=== PATIENT | female | born 1960 | race Caucasian/White ===

== ENCOUNTER → 2016-11-03 | Outpatient (CLI) | payer BC ==
--- NOTE | 2016-11-04 15:29 | US ---
EXAMINATION TYPE: US thyroid st tissue head/neck DATE OF EXAM: 11/03/2016 4:03 PM COMPARISON: NONE CLINICAL HISTORY: E04.1 Left Thyroid Nodule. follow up on known nodules GLAND SIZE: Right Lobe: 3.8 x 1.4 x 1.7 cm Overall Parenchyma: homogenous Left Lobe: 4.5 x 1.8 x 1.8 cm Overall Parenchyma: homogeneous Isthmus Thickness: 0.3 cm NODULES RIGHT: # of nodules measured on right: 0 LEFT: # of nodules measured on left: 4 1. 1.0 X 0.9 x 0.8 cm isoechoic solid nodule at the mid pole with well-defined margins This nodule is wider than tall and shows minimal intranodular vascularity. Prior size: 1.1 x 0.6 x 0.7 cm 2. 1.2 X 0.9 x 1.0 cm isoechoic solid nodule at the mid posterior pole. This nodule is wider than t all and shows minimal intranodular vascularity. Prior size: 0.9 x 0.5 x 0.7 cm 3. 0.4 X 0.3 x 0.3 cm hypoechoic cystic nodule at the lower pole with well-defined margins. This no dule is wider than tall and shows no intranodular vascularity. Prior size: 0.4 x 0.3 x 0.3 cm 4. 0.6 X 0.4 x 0.5 cm isoechoic mixed nodule at the lower anterior pole with well-defined margins. This nodule is wider than tall and shows no intranodular vascularity. Prior size: no previous ISTHMUS: # of nodules measured in the isthmus: 0 Bilateral neck scanned, no evidence of lymphadenopathy. IMPRESSION: 1. Left lobe thyroid nodules. Two nodules are larger than 1 cm.
== END | disposition home or self-care (01) ==
LOC: RADUSWWP 15:31
PROVIDERS: ATTEND Otolaryngology
DX: E04.2 Nontoxic multinodular goiter (principal)
CPT/HCPCS: 76536

== ENCOUNTER → 2017-02-09 | Outpatient (CLI) | payer BC ==
--- NOTE | 2017-02-09 12:50 | MR ---
EXAMINATION TYPE: MR shoulder LT wo con DATE OF EXAM: 02/09/2017 COMPARISON: NONE HISTORY: Lt shoulder pain TECHNIQUE: Multiplanar, multisequence imaging of the left shoulder is performed without contrast. FINDINGS: Rotator Cuff: There is bursal fraying of the supraspinatus tendon anterior fibers distally with intra substance signal within the tendon and thickening compatible with chronic tendinosis and partial intr asubstance tear. Infraspinatus tendon intact. Subscapularis tendon has a normal appearance. Acromioclavicular Joint: There is narrowing and hypertrophic change of the AC joint. This does result in mild mass effect upon the supraspinatus tendon and muscle. Glenohumeral Joint: No sizable joint effusion. Glenohumeral ligaments appear to be intact. Labrum: The labrum appears grossly intact given limitation of non-arthrogram study. Biceps Tendon: The long head of biceps is in normal location within bicipital groove. Bone marrow signal: No focal abnormal marrow signal is appreciated. IMPRESSION: 1. Findings are suggestive of bursal fraying anterior fibers supraspinatus tendon which also demonstr ates more proximal thickening and increased intrasubstance signal compatible with tendinosis and part ial through thickness tear involving the anterior fibers with no retraction. Impingement secondary to arthropathy of the AC joint.
== END ==
LOC: RADMRIMAIN 11:30
PROVIDERS: ATTEND Orthopaedic Surgery
DX: M25.512 Pain in left shoulder (principal)

== ENCOUNTER → 2017-05-17 | Outpatient (CLI) | payer BC ==
--- NOTE | 2017-05-17 10:09 | US ---
EXAMINATION TYPE: US thyroid st tissue head/neck DATE OF EXAM: 05/17/2017 COMPARISON: US November 03, [address] neck November 19, 2015 CLINICAL HISTORY: E04.1 Thryoid nodule. Pt states F/U on nodules GLAND SIZE: Right Lobe: 4.3 x 1.5 x 1.4 cm Overall Parenchyma: heterogenous Left Lobe: 4.7 x 1.7 x 1.5 cm Overall Parenchyma: heterogeneous Isthmus Thickness: 0.3 cm NODULES RIGHT: # of nodules measured on right: 0 LEFT: # of nodules measured on left: 3 1. 0.2 X 0.6 x 0.7 cm isoechoic solid nodule at the mid pole with well-defined margins; This nodul e is wider than tall and shows intranodular vascularity. Prior size: 1.0 x 0.9 x 0.8 cm 2. 1.5 X 1.3 x 1.3 cm isoechoic solid nodule at the mid pole with poorly defined margins; This nodu le is wider than tall and shows intranodular vascularity. Prior size: 1.2 x 0.9 x 1.0 cm 3. 0.5 X 0.4 x 0.3 cm hypoechoic mixed nodule at the lower pole with well-defined margins;This nodul e is wider than tall and shows intranodular vascularity. Prior size: 0.4 x 0.3 x 0.3 cm ISTHMUS: # of nodules measured in the isthmus: 0 Bilateral neck scanned, no evidence of lymphadenopathy. Slightly enlarged nodule on left, otherwise o ther nodules appear stable. Normal size heterogeneous thyroid gland is redemonstrated with some nodules left thyroid marked by te chnologist, largest solid nodule is poorly defined and has been biopsied posteriorly. IMPRESSION: Overall stable findings, heterogeneous normal-sized thyroid is stable left-sided nodules, no new grea ter than 1 cm solid or cystic nodules are seen.
== END | disposition home or self-care (01) ==
LOC: RADUSWWP 09:32
PROVIDERS: ATTEND Otolaryngology
DX: E04.2 Nontoxic multinodular goiter (principal)
CPT/HCPCS: 76536

== ENCOUNTER → 2018-06-25 | Outpatient (CLI) | payer BC ==
--- NOTE | 2018-06-25 11:55 | US ---
EXAMINATION TYPE: US thyroid st tissue head/neck DATE OF EXAM: 06/25/2018 COMPARISON: Prior thyroid ultrasound 05/17/2017 CLINICAL HISTORY: E04.1 THYROID NODULE. GLAND SIZE: Right Lobe: 4.2 x 1.5 x 1.6 Overall Parenchyma: heterogenous Left Lobe: 4.6 x 1.8 x 1.6 Overall Parenchyma: heterogeneous Isthmus Thickness: 0.3m NODULES RIGHT: # of nodules measured on right: 2 1. 0.5 x 0.2x0.3 cmnodule at the upper pole with well-defined margins; . This nodule is wider than tall and shows intranodular vascularity. Prior size: Not measured on prior 2. 0.5x 0.2 nodule at the lower pole with well-defined margins; . This nodule is wider than tall an d shows no intranodular vascularity. Prior size: Not measured on prior LEFT: # of nodules measured on left: 3 1. 0.7 x0.6 x 0.6 cm nodule at the mid pole with well-defined margins; . This nodule is wider than tall and shows intranodular vascularity. Prior size: 0.7 x0.6x0.6cm 2. 1.1 x1.0 x 1.7 cm nodule the mid pole with poorly defined margins; . This nodule is wider than ta ll and shows intranodular vascularity. Prior size: 1.5 x 1.3 x 1.3 cm 3. 0.5 x0.4x0.4cm mixed nodule at the lower pole with well-defined margins; . This nodule is wider t melissa tall and shows intranodular vascularity. Prior size: 0.5 x 0.4 x 0.3 cm ISTHMUS: # of nodules measured in the isthmus: 0 Bilateral neck scanned, no evidence of lymphadenopathy. Largest left-sided nodule does not have well-defined margins especially in the sagittal measurement w hich may be overestimated. IMPRESSION: Multiple thyroid nodules are essentially stable.
== END | disposition home or self-care (01) ==
LOC: RADUSWWP 10:09
PROVIDERS: ATTEND Otolaryngology
DX: E04.2 Nontoxic multinodular goiter (principal)
CPT/HCPCS: 76536

== ENCOUNTER → 2018-12-24 | Outpatient (CLI) | payer BC ==
--- NOTE | 2018-12-24 13:28 | US ---
EXAMINATION TYPE: US thyroid st tissue head/neck DATE OF EXAM: 12/24/2018 COMPARISON: 06/25/2018 CLINICAL HISTORY: 58-year-old female E04.1 thyroid nodule. TECHNIQUE: Multiple sonographic images of the thyroid gland are obtained. FINDINGS: GLAND SIZE: Right Lobe: 4.0 x 2.1 x 1.3 cm Overall Parenchyma: heterogenous Left Lobe: 4.8 x 1.8 x 1.7 cm Overall Parenchyma: heterogeneous Isthmus Thickness: 0.3 cm NODULES RIGHT: # of nodules measured on right: 3 1. 5 x 4 x 2 mm hypoechoic mixed nodule at the upper pole with well-defined margins. This nodule is wider than tall and shows no intranodular vascularity. Prior size: 4 x 4 by 2 mm 2. 0.8 X 0.5 x 0.2 cm hypoechoic solid nodule at the medial pole with well-defined margins. This no dule is wider than tall and shows no intranodular vascularity. Prior size: 0.5 x 0.4 x 0.2 cm 3. 0.3 X 0.3 x 0.2 cm hypoechoic cystic nodule at the upper pole with well-defined margins. This no dule is wider than tall and shows no intranodular vascularity. LEFT: # of nodules measured on left: 3 largest 1. 0.5 X 0.4 x 0.4 cm hypoechoic mixed nodule at the lower pole with well-defined margins. This no dule is wide as is tall and shows no intranodular vascularity. Prior size: 0.5 x 0.4 x 0.4 cm 2. 1.1 X 0.6 x 0.7 cm isoechoic mixed nodule at the mid pole with poorly defined margins. This nodu le is taller than wide and shows no intranodular vascularity. Prior size: 0.7 x 0.6 x 0.6 cm 3. 0.3 X 0.3 x 0.2 cm hypoechoic cystic nodule at the mid inferior pole with well-defined margins. This nodule is wider than tall and shows no intranodular vascularity. Prior size: not seen ISTHMUS: # of nodules measured in the isthmus: 0 Bilateral neck scanned: no evidence of lymphadenopathy. IMPRESSION: 1. Redemonstrated multinodular thyroid gland, possible goiter. 2. The largest nodule is primarily solid in the left midpole measuring 1.1 x 0.7 cm versus 0.7 x 0.6 cm, previously. Additional follow-up is recommended. The decision to biopsy should be made on a clini anne basis. 3. The remaining nodules remain subcentimeter.
== END | disposition home or self-care (01) ==
LOC: RADUSWWP 08:44
PROVIDERS: ATTEND Otolaryngology
DX: E04.2 Nontoxic multinodular goiter (principal)
CPT/HCPCS: 76536

== ENCOUNTER 2019-05-11 10:45 | Emergency (ER) | payer BC ==
[2019-05-11 10:54] VITALS: RESP 19
[2019-05-11] MEDS ORDERED: DIPH,PERTUS(ACELL)TETVAC-LF 0.5 ML VIAL IM ONE (12:06)
[2019-05-11] MEDS ORDERED: LIDOCAINE 1% INJ 10MG/ML (20 ML MDV) SQ ONE (12:06)
--- NOTE | 2019-05-11 12:28 | CT ---
EXAMINATION TYPE: CT brain naldo zamora DATE OF EXAM: 05/11/2019 COMPARISON: Fall HISTORY: Fall, struck back of head, neck pain TECHNIQUE: 1. Axial CT images of the head without contrast. Bone windows and sagittal and coronal reformats were reviewed. 2. Axial CT images of the cervical spine without contrast. Bone windows and sagittal and coronal refo rmats were reviewed. 3. CT DLP: 1776.7 mGycm Automated exposure control for dose reduction was used. FINDINGS: CT Head: No acute intracranial hemorrhage. Ashton-white differentiation is preserved. Circumscribed hypoattenuat ion within the inferior right basal ganglia is in a typical location of a prominent perivascular spac e. The ventricular system is normal in size and morphology. No abnormal extra-axial fluid collections or midline shift of structures. Patent basal cisterns. No depressed or displaced calvarial fracture. Visualized paranasal sinuses and temporal bone structur es are well aerated. The orbits and skull base are unremarkable. CT Cervical Spine: The cervical spine is imaged through T3. Straightening of the usual cervical lordosis. Grade 1 noe listhesis of T1 over T2 is likely on a degenerative basis. Anatomic alignment of the facets. No fract ure. Vertebral body heights are maintained. Incidental C7 vertebral body hemangioma. Mild multilevel degenerative changes greatest in degree at C5-C6 characterized by osteophyte formatio n and mild disc height loss. No significant osseous impingement upon the spinal canal or neural fernando en. Mild contusion within the subcutaneous tissues of the upper back. Mildly enlarged left thyroid lobe. Lung apices are clear. IMPRESSION: 1. No acute intracranial abnormality. 2. No acute traumatic injury of the cervical spine. 3. Contusion within the subcutaneous tissues of the upper back.
--- NOTE | 2019-05-11 13:18 | XR ---
EXAMINATION TYPE: XR shoulder complete LT DATE OF EXAM: 05/11/2019 CLINICAL HISTORY: Fall TECHNIQUE: Three views of the left shoulder are obtained. COMPARISON: None. FINDINGS: No fracture. Glenohumeral and acromioclavicular joints are congruent. Mild degenerative mike nges at the acromioclavicular joint. IMPRESSION: No acute fracture or dislocation.
--- NOTE | 2019-05-11 13:21 | XR ---
EXAMINATION TYPE: XR hand complete RT DATE OF EXAM: 05/11/2019 CLINICAL HISTORY: Fall TECHNIQUE: Frontal, lateral and oblique images of the right hand are obtained. COMPARISON: None. FINDINGS/IMPRESSION: No acute fracture or joint malalignment. No osseous destructive lesion. Degenera tive changes throughout the hand greatest degree at the first interphalangeal joint, moderate. Soft t issue swelling and possible gas foci along the dorsum of the wrist.
--- NOTE | 2019-05-11 13:28 | ED ---
General Adult HPI - General Chief complaint: Fall Stated complaint: Fall Time Seen by Provider: 05/11/19 11:13 Source: patient, RN notes reviewed Mode of arrival: ambulatory Limitations: no limitations - History of Present Illness Initial comments: 58-year-old female presents to the emergency department for a chief complaint of fall.Patient had a trip and fall earlier today. Patient was walking down a flight of stairs. There was a decorative window on the sinus series she fell into this and fell backwards. Patient fell about 3-4 feet. Patient did hit her head. Denies any back pain. Admits to mild neck pain. Denies shortness of breath or chest pain. Denies any abdominal pain. Patient does admit to right hand pain and laceration. Patient also has left shoulder pain but states this is chronic. Patient has no other complaints at this time including shortness of breath, chest pain, abdominal pain, nausea or vomiting, headache, or visual changes. - Related Data Home Medications Medication Instructions Recorded Confirmed Cholecalciferol [Vitamin D3] 1,000 unit PO DAILY 11/13/15 11/20/15 Cyanocobalamin (Vitamin B-12) 2,000 mcg PO WEEKLY 11/13/15 11/20/15 [Vitamin B-12] DULoxetine HCL [Cymbalta] 30 mg PO DAILY 11/13/15 11/20/15 Montelukast [Singulair] 10 mg PO DAILY 11/13/15 11/20/15 Multivitamin/Iron/Folic Acid 1 each PO DAILY 11/13/15 11/20/15 [Centrum Complete Multivit Tab] Naproxen Sodium [Aleve] 220 mg PO Q12HR 11/13/15 11/20/15 Allergies Allergy/AdvReac Type Severity Reaction Status Date / Time codeine Allergy Vomiting Verified 11/20/15 12:27 sulfamethoxazole Allergy Rash/Hives Verified 11/20/15 12:27 [From Bactrim] trimethoprim [From Bactrim] Allergy Rash/Hives Verified 11/20/15 12:27 Review of Systems ROS Statement: Those systems with pertinent positive or pertinent negative responses have been documented in the HPI. ROS Other: All systems not noted in ROS Statement are negative. Past Medical History Past Medical History: Asthma, Thyroid Disorder History of Any Multi-Drug Resistant Organisms: None Reported Past Surgical History: Tonsillectomy Additional Past Surgical History / Comment(s): gastric sleeve Past Anesthesia/Blood Transfusion Reactions: No Reported Reaction Past Psychological History: Depression Smoking Status: Never smoker Past Alcohol Use History: None Reported Past Drug Use History: None Reported - Past Family History Mother Additional Family Medical History / Comment(s): uterine cancer General Exam - General Exam Comments Initial Comments: Patient has mild ecchymosis noted to the dorsum of the right hand however no significant tenderness. She does have small abrasion with shallow laceration noted to the dorsum of the right wrist. There is no scaphoid tenderness. Patient has full range motion of the left shoulder, radial pulse 2+, capillary refill less than 2 seconds. Sensation intact in the left upper extremity. No contusions noted. No significant tenderness. Limitations: no limitations General appearance: alert, in no apparent distress Head exam: Present: atraumatic, normocephalic, normal inspection Eye exam: Present: normal appearance, PERRL, EOMI. Absent: scleral icterus, conjunctival injection, periorbital swelling ENT exam: Present: normal exam, mucous membranes moist Neck exam: Present: normal inspection, full ROM. Absent: tenderness (Minimal tenderness to the C7 area), meningismus, lymphadenopathy Respiratory exam: Present: normal lung sounds bilaterally. Absent: respiratory distress, wheezes, rales, rhonchi, stridor Cardiovascular Exam: Present: regular rate, normal rhythm, normal heart sounds. Absent: systolic murmur, diastolic murmur, rubs, gallop, clicks GI/Abdominal exam: Present: soft, normal bowel sounds. Absent: distended, tenderness, guarding, rebound, rigid Back exam: Present: other (No contusions or abrasions noted). Absent: CVA tenderness (R), CVA tenderness (L), vertebral tenderness (No thoracic or lumbar spine tenderness) Neurological exam: Present: alert, oriented X3, CN II-XII intact Course Vital Signs 05/11/19 10:50 Temperature 98.8 F Pulse Rate 80 Respiratory 19 Rate Blood Pressure 194/85 O2 Sat by Pulse 98 Oximetry Procedures - Laceration Laceration #1 Consent Obtained: verbal consent Indication: laceration Site: hand Size (cm): 2 Description: linear Depth: simple, single layer Pre-repair: irrigated extensively Type of Sutures: other (steri strips) Medical Decision Making - Medical Decision Making Physical exam remarkable for some mild C7 tenderness as well as superficial laceration to the right wrist and contusion to the right hand. CT cervical spine shows no acute intracranial abnormality, no acute traumatic injury of the cervical spine. Contusion within the subcutaneous tissues of the upper back. X-ray of the left shoulder shows no acute fracture or dislocation. X-ray of the right hand shows no acute fracture or malalignment. Small shallow laceration over the right wrist was repaired using Steri-Strips as patient did not want sutures. It is up-to-date. Disposition Clinical Impression: Laceration, Fall Disposition: HOME SELF-CARE Condition: Good Instructions (If sedation given, give patient instructions): Steristrips (ED), Head Injury (ED) Additional Instructions: Please take Tylenol for pain. Please follow-up with primary care in 1-2 days. Return to the emergency department if you have any worsening symptoms. Is patient prescribed a controlled substance at d/c from ED?: No Referrals: Jarvis Wagner DO [Primary Care Provider] - 1-2 days Time of Disposition: 14:14
[2019-05-11] MEDS ORDERED: HYDROcodone/APAP 5-325MG 1 EACH TAB PO STA (14:34)
[2019-05-11] MEDS ORDERED: amLODIPine 5 MG TAB PO STA (14:34)
[2019-05-11 14:59] VITALS: BP 183/106; PULSE 67; TEMP 98.3
== END 2019-05-11 14:38 | disposition home or self-care (01) ==
LOC: EC 10:45
DX: S61.511A Laceration without foreign body of right wrist, initial encounter (principal); S60.221A Contusion of right hand, initial encounter; S20.229A Contusion of unspecified back wall of thorax, initial encounter; F32.9 Major depressive disorder, single episode, unspecified; Z79.899 Other long term (current) drug therapy; Z23 Encounter for immunization; Z88.5 Allergy status to narcotic agent; Z88.2 Allergy status to sulfonamides; Z88.1 Allergy status to other antibiotic agents; W01.0XXA Fall on same level from slipping, tripping and stumbling without subsequent striking against object, initial encounter; W10.8XXA Fall (on) (from) other stairs and steps, initial encounter; Y93.01 Activity, walking, marching and hiking
CPT/HCPCS: 73030; 73130; 72125; 70450; 90715; 99284; 90471; 12001; J2001

== ENCOUNTER → 2019-07-22 | Outpatient (CLI) | payer BC ==
--- NOTE | 2019-07-22 10:33 | US ---
EXAMINATION TYPE: US thyroid st tissue head/neck DATE OF EXAM: 07/22/2019 COMPARISON: 12/24/2018 CLINICAL HISTORY: E04.1 Thyroid Nodule. Thyroid nodules. GLAND SIZE: Right Lobe: 4.4 x 1.3 x 1.6 cm Overall Parenchyma: heterogenous Left Lobe: 4.4 x 1.7 x 1.7 cm Overall Parenchyma: heterogeneous Isthmus Thickness: .4 cm NODULES RIGHT: # of nodules measured on right: 2 1. .5 X .6 x .7 cm isoechoic echogenic nodule at the mid pole with poorly defined margins; . This nodule is wider than tall and shows intranodular vascularity. Prior size: .8 x .5 x .2 cm 2. .7 X .6 x .3 cm hypoechoic solid nodule at the upper pole with well-defined margins; . This nodu le is wider than tall and shows no intranodular vascularity. Prior size: .5 x .4 x .2 cm LEFT: # of nodules measured on left: 2 1. 1.0 X .5 x .7 cm isoechoic mixed nodule at the mid pole with poorly defined margins; . This nod ule is wider than tall and shows no intranodular vascularity. Prior size: 1.1 x .6 x .7 cm 2. .4 X .4 x .5 cm hypoechoic mixed nodule at the lower pole with well-defined margins; . This nodu le is wider than tall and shows no intranodular vascularity. Prior size: .5 x .4 x .4 cm ISTHMUS: # of nodules measured in the isthmus: 0 Bilateral neck scanned, no evidence of lymphadenopathy. Only 2 nodules seen on todays scan compared to 3 on the previous. IMPRESSION: Similar size of the bilateral thyroid nodules with the largest measuring 1.0 cm on the le ft.
== END | disposition home or self-care (01) ==
LOC: RADUSWWP 08:53
PROVIDERS: ATTEND Otolaryngology
DX: E04.2 Nontoxic multinodular goiter (principal)
CPT/HCPCS: 76536

== ENCOUNTER → 2020-08-20 | Outpatient (CLI) | payer BC ==
--- NOTE | 2020-08-20 12:05 | US ---
EXAMINATION TYPE: US thyroid st tissue head/neck DATE OF EXAM: 08/20/2020 COMPARISON: Thyroid ultrasound July 22, 2019 CLINICAL HISTORY: E04.1 THYROID NODULE. thy nodule GLAND SIZE: Right Lobe: 4.2 x 1.6 x 1.8 cm Overall Parenchyma: homogenous Left Lobe: 5.5 x 1.8 x 1.6 cm Overall Parenchyma: homogeneous Isthmus Thickness: cm NODULES RIGHT: # of nodules measured on right: 2 1. .6 X .4 x .4 cm solid or almost completely solid, hyperechoic nodule, which is wider than tall, with ill-defined margins, without echogenic foci. Prior size: .5 x .6 x .7 cm 2. .6 X .6 x .3 cm mixed cystic and solid, hypoechoic nodule, which is wider than tall, with smooth margins, without echogenic foci. Prior size: .7 x .6 x .3 cm LEFT: # of nodules measured on left: 2 1. 1.1 X .6 x .7 cm solid or almost completely solid, hypoechoic nodule, which is wider than tall, with ill-defined margins, without echogenic foci. Prior size: 1.1 x .6 x .7 cm 2. .5 X .6 x .4 cm solid or almost completely solid, hypoechoic nodule, which is wider than tall, w ith smooth margins, without echogenic foci. Prior size: .5 x .4 x .4 cm ISTHMUS: # of nodules measured in the isthmus: 0 Bilateral neck scanned, no evidence of lymphadenopathy. Redemonstration of fairly homogeneous normal-sized thyroid with stable small nodules bilaterally as d etailed above. IMPRESSION: As above. No new or enlarging greater than 1 cm solid nodules present.
== END ==
LOC: RADUSWWP 09:53
PROVIDERS: ATTEND Otolaryngology
DX: E04.2 Nontoxic multinodular goiter (principal)
CPT/HCPCS: 76536

== ENCOUNTER → 2021-06-17 | Outpatient (CLI) | payer BC | END | disposition home or self-care (01) | LOC: LABWHC1 10:50 | PROVIDERS: ATTEND Family Medicine | DX: U07.1 COVID-19 (principal) | CPT/HCPCS: U0003; C9803; U0005 ==

== ENCOUNTER → 2022-12-09 | Outpatient (CLI) | payer BC ==
[2022-12-09 21:40] LABS: HCT 34.9 % (37.2-46.3); HGB 9.8 d/dL (12.0-15.0); MCH 21.7 pg (27.0-32.0); MCHC 28.1 d/dL (32.0-37.0); MCV 77.4 FL (80.0-97.0); NRBC Per 100 WBC 0 X 10*3/uL (0.00-0.01); Platelet Count 275 X 10*3/uL (140-440); RBC 4.51 X 10*6/uL (4.10-5.20); RDW 21.2 % (11.5-14.5); WBC 6.02 X 10*3/uL (4.50-10.00)
[2022-12-09 21:44] LABS: ALT 14 U/L (8-44); AST 21 U/L (13-35); Albumin 4.4 d/dL (3.8-4.9); Albumin/Globulin Ratio 2.32 Ratio (1.60-3.17); Alkaline Phosphatase 135 U/L (41-126); BUN/Creat Ratio 21.64 Ratio (12.00-20.00); Blood Urea Nitrogen 23.8 mg/dL (9.0-27.0); Calcium 9.9 mg/dL (8.7-10.3); Carbon Dioxide 26.2 mmol/L (21.6-31.8); Chloride 105 mmol/L (96-109); Chol/HDL Ratio 2.16 Ratio; Globulin 1.9 d/dL (1.6-3.3); Glucose 93 mg/dL (70-110); LDL Cholesterol,Calculated 89.4 mg/dL (0.0-131.0); Potassium 5.1 mmol/L (3.5-5.5); Sodium 143 mmol/L (135-145); T4, Free (Free Thyroxine) 1.02 ng/dL (0.80-1.80); Total Bilirubin 0.4 mg/dL (0.3-1.2); Total Protein 6.3 d/dL (6.2-8.2); VLDL Calculation 15.94 mg/dL (5.00-40.00)
== END | disposition home or self-care (01) ==
LOC: LABWHC1 10:34
PROVIDERS: ATTEND Nurse Practitioner Family
DX: Z00.00 Encounter for general adult medical examination without abnormal findings (principal); I10 Essential (primary) hypertension; E78.5 Hyperlipidemia, unspecified; F32.A Depression, unspecified; R42 Dizziness and giddiness
CPT/HCPCS: 36415; 80053; 80061; 82306; 83036; 84439; 84443; 85027

== ENCOUNTER → 2022-12-14 | Outpatient (CLI) | payer BC ==
--- NOTE | 2022-12-14 18:36 | US ---
EXAMINATION TYPE: US thyroid st tissue head/neck DATE OF EXAM: 12/14/2022 COMPARISON: Multiple thyroid ultrasounds with most recent 08/20/2020. CLINICAL INDICATION: Female, 62 years old with history of E04.1 NONTOXIC SINGLE THYROID NODULE; Follo w up nodules GLAND SIZE: Right Lobe: 4.4 x 1.6 x 1.5 cm Overall Parenchyma: heterogenous Left Lobe: 4.6 x 1.8 x 1.9 cm Overall Parenchyma: heterogenous Isthmus Thickness: 0.3 cm NODULES RIGHT: # of nodules measured on right: 1 1. 0.6 X 0.6 x 0.3 cm, upper medial, mixed cystic and solid, hypoechoic nodule, which is wider than tall, with smooth margins, without echogenic foci. Prior size: 0.6 x 0.6 x 0.3 cm LEFT: # of nodules measured on left: 2 1. 0.6 X 0.5 x 0.5 cm, lower lateral, mixed cystic and solid, hypoechoic nodule, which is wider sivan n tall, with smooth margins, without echogenic foci. Prior size: 0.5 x 0.6 x 0.4 cm 2. 1.1 X 0.8 x 0.8 cm, mid medial, mixed cystic and solid, isoechoic nodule, which is wider than t all, with smooth margins, without echogenic foci. Prior size: 1.1 x 0.6 x 0.7 cm ISTHMUS: # of nodules measured in the isthmus: 0 Bilateral neck scanned, no evidence of lymphadenopathy. Redemonstration of normal size thyroid gland with homogeneous echotexture and stable small bilateral nodules. IMPRESSION: Redemonstration of normal size thyroid gland with homogeneous echotexture and stable small bilateral nodules. No new or enlarging nodules.
== END | disposition home or self-care (01) ==
LOC: RADUSWWP 15:59
PROVIDERS: ATTEND Otolaryngology
DX: E04.2 Nontoxic multinodular goiter (principal)
CPT/HCPCS: 76536

== ENCOUNTER → 2022-12-23 | Outpatient (CLI) | payer BC ==
[2022-12-23 09:50] LABS: Creatine Kinase 43 U/L (30-135)
[2022-12-23 10:03] LABS: Troponin I <0.012 ng/mL (0.000-0.034)
[2022-12-23 12:11] LABS: Creatine Kinase MB 0.6 ng/mL (0.0-3.4)
[2022-12-23 16:40] LABS: % Iron Saturation 7.51 (12.00-45.00); Ferritin 10.1 ng/mL (10.0-291.0)
[2022-12-23 17:00] LABS: HCT 33.9 % (37.2-46.3); HGB 9.9 d/dL (12.0-15.0); MCH 22.2 pg (27.0-32.0); MCHC 29.2 d/dL (32.0-37.0); MCV 76.2 FL (80.0-97.0); NRBC Per 100 WBC 0 X 10*3/uL (0.00-0.01); Platelet Count 276 X 10*3/uL (140-440); RBC 4.45 X 10*6/uL (4.10-5.20); RDW 20.9 % (11.5-14.5); WBC 5.96 X 10*3/uL (4.50-10.00)
== END | disposition home or self-care (01) ==
LOC: LABWHC1 07:51
PROVIDERS: ATTEND Family Medicine
DX: D64.9 Anemia, unspecified (principal); R00.2 Palpitations; R07.89 Other chest pain
CPT/HCPCS: 36415; 82550; 82553; 82728; 83540; 83550; 84484; 85027

== ENCOUNTER 2025-01-05 15:47 | Inpatient (IN) | payer BC ==
[2025-01-05 16:25] LABS: Basophils # (A) 0.08 10*3/uL (0.00-0.10); Basophils % (A) 1.1 %; Eosinophils # (A) 0.12 10*3/uL (0.04-0.35); Eosinophils % (A) 1.6 %; HCT 42.4 % (37.2-46.3); HGB 13.8 g/dL (12.0-15.0); Lymphocytes # (A) 1.84 10*3/uL (0.90-5.00); Lymphocytes % (A) 25.1 %; MCH 28.8 pg (27.0-32.0); MCHC 32.5 g/dL (32.0-37.0); MCV 88.5 fL (80.0-97.0); Monocytes # (A) 0.62 10*3/uL (0.20-1.00); Monocytes % (A) 8.4 %; Neutrophils # (A) 4.65 10*3/uL (1.80-7.70); Neutrophils % (A) 63.4 %; Platelet Count 206 10*3/uL (140-440); RBC 4.79 10*6/uL (4.10-5.20); RDW 16.3 % (11.5-14.5); WBC 7.34 10*3/uL (4.50-10.00)
[2025-01-05 16:37] LABS: ALT 199 U/L (4-34); African American GFR (CKD) 76 (>60 ml/min/1.73 sqM); Albumin 4.2 g/dL (3.5-5.0); Anion Gap 14 mmol/L; Blood Urea Nitrogen 22 mg/dL (7-17); Calcium 9.9 mg/dL (8.4-10.2); Carbon Dioxide 17 mmol/L (22-30); Chloride 107 mmol/L (98-107); Glucose 111 mg/dL (74-99); Lipase 156 U/L (23-300); Non-African American GFR(CKD) 66 (>60 ml/min/1.73 sqM); Sodium 138 mmol/L (137-145); Total Protein 6.7 g/dL (6.3-8.2)
--- NOTE | 2025-01-05 16:38 | ED ---
General Adult HPI - General Chief complaint: Chest Pain Stated complaint: Back pain Time Seen by Provider: 01/05/25 15:49 Source: patient Mode of arrival: ambulatory Limitations: no limitations - History of Present Illness Initial comments: Dictation was produced using Gam[employer] dictation software. please excuse any grammatical, word or spelling errors. Chief Complaint: 64-year-old female presents to the emergency department for chest pain History of Present Illness: Patient 64-year-old female presents to the emergency department chest pain. Patient states that the pain is in her chest radiates to her back states that she has had this before though not as severe. She believes that she has a twisted rib. Denies any extremity issues. Patient does report history of hypertension she states is controlled. Denies any shortness of breath. Patient states that her pain is 9 out of 10. The ROS documented in this emergency department record has been reviewed and confirmed by me. Those systems with pertinent positive or negative responses have been documented in the HPI. All other systems are other negative and/or noncontributory. - Related Data Home Medications Medication Instructions Recorded Confirmed Cholecalciferol [Vitamin D3] 1,000 unit PO DAILY 11/13/15 11/20/15 Cyanocobalamin (Vitamin B-12) 2,000 mcg PO WEEKLY 11/13/15 11/20/15 [Vitamin B-12] DULoxetine HCL [Cymbalta] 30 mg PO DAILY 11/13/15 11/20/15 Montelukast [Singulair] 10 mg PO DAILY 11/13/15 11/20/15 Multivitamin/Iron/Folic Acid 1 each PO DAILY 11/13/15 11/20/15 [Centrum Complete Multivit Tab] Naproxen Sodium [Aleve] 220 mg PO Q12HR 11/13/15 11/20/15 Allergies Allergy/AdvReac Type Severity Reaction Status Date / Time codeine Allergy Vomiting Verified 01/05/25 15:52 sulfamethoxazole Allergy Rash/Hives Verified 01/05/25 15:52 [From Bactrim] trimethoprim [From Bactrim] Allergy Rash/Hives Verified 01/05/25 15:52 Review of Systems ROS Statement: Those systems with pertinent positive or pertinent negative responses have been documented in the HPI. ROS Other: All systems not noted in ROS Statement are negative. Past Medical History Past Medical History: Asthma, Thyroid Disorder History of Any Multi-Drug Resistant Organisms: None Reported Past Surgical History: Tonsillectomy Additional Past Surgical History / Comment(s): gastric sleeve Past Anesthesia/Blood Transfusion Reactions: No Reported Reaction Past Psychological History: Depression Smoking Status: Never smoker Past Alcohol Use History: None Reported Past Drug Use History: None Reported - Past Family History Mother Additional Family Medical History / Comment(s): uterine cancer General Exam - General Exam Comments Initial Comments: PHYSICAL EXAM: General Impression: Alert and oriented x3, not in acute distress HEENT: Normocephalic atraumatic, extra-ocular movements intact, pupils equal and reactive to light bilaterally, mucous membranes moist. 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 No NV prolongation, no QTC prolongation, no ST or T-wave changes noted. Overall, this EKG is unremarkable Medical Decision Making - Medical Decision Making Was pt. sent in by a medical professional or institution (, PA, SALES ROUTE DRIVER HELPER, urgent care, hospital, or retirement...) When possible be specific @ -No Did you speak to anyone other than the patient for history (EMS, parent, family, police, friend...)? What history was obtained from this source @ -No Did you review nursing and triage notes (agree or disagree)? Why? @ -I reviewed and agree with nursing and triage notes Were old charts reviewed (outside hosp., previous admission, EMS record, old EKG, old radiological studies, urgent care reports/EKG's, retirement records)? Report findings @ -No old charts were reviewed Differential Diagnosis (chest pain, altered mental status, abdominal pain women, abdominal pain men, vaginal bleeding, musculoskeletal, weakness, fever, dyspnea, syncope, headache, dizziness, GI bleed, back pain, seizure, CVA, palpatations, mental health)? @ -Differential Chest Pain: Stable Angina, Unstable Angina, STEMI, NSTEMI Aortic Dissection, Pneumothorax, Musculoskeletal, Esophageal Spasm GERD, Cholecystitis, Pancreatitis, Zoster, th is is not meant to be an all-inclusive list. EKG interpreted by me (3pts min.). @ -See above X-rays interpreted by me (1pt min.). @ -None done CT interpreted by me (1pt min.). @ -CT angiography shows no dissection of the aorta U/S interpreted by me (1pt. min.). @ -None done What testing was considered but not performed or refused? (CT, X-rays, U/S, labs)? Why? @ -None What meds were considered but not given or refused? Why? @ -None Was smoking cessation discussed for >3mins.? @ -No Were there social determinants of health that impacted care today? How? (Homelessness, low income, unemployed, alcoholism, drug addiction, transportation, low edu. Level, literacy, decrease access to med. care, [facility], rehab)? @ -No Was there de-escalation of care discussed even if they declined (Discuss DNR or withdrawal of care, Hospice)? DNR status @ -No What co-morbidities impacted this encounter? (DM, HTN, Smoking, COPD, CAD, Cancer, CVA, ARF, Chemo, Hep., AIDS, mental health diagnosis, sleep apnea, morbid obesity)? @ -None Was patient admitted / discharged? Hospital course, mention meds given and route, prescriptions, significant lab abnormalities, going to OR and other pertinent info. @ -64-year-old female with chest pain. Blood pressure on arrival was elevated 202/119. Rest of vitals unremarkable. EKG shows no signs of ischemia or infarction. Clinical presentation concerning for dissection. CT angiography is negative for dissection. Labs unremarkable troponin negative. Patient will be admitted for cardiac monitoring cardiology consultation for chest pain. Patient given aspirin. Case discussed with hospitalist for admission Did you discuss the management of the patient with other professionals (professionals i.e. , PA, SALES ROUTE DRIVER HELPER, lab, RT, psych nurse, social media assistant, size mixer, teacher, gunnery/ordnance officer, case management associate)? Give summary @ -See above Was critical care preformed (if so, how long)? @ -No Undiagnosed new problem with uncertain prognosis? @ -No Drug Therapy requiring intensive monitoring for toxicity (Heparin, Nitro, Insulin, Cardizem)? @ -No Were any procedures done? @ -No Diagnosis/symptom? Acute, or Chronic, or Acute on Chronic? Uncomplicated (without systemic symptoms) or Complicated (systemic symptoms)? @ -Chest pain Side effects of treatment? @ -No Exacerbation, Progression, or Severe Exacerbation? @ -No Poses a threat to life or bodily function? How? (Chest pain, [place], [place], pneumonia, PE, COPD, DKA, ARF, appy, cholecystitis, CVA, Diverticulitis, Homicidal, Suicidal, threat to staff... and all critical care pts) @ -yes - Lab Data Result diagrams: 01/05/25 16:18 01/05/25 16:18 Lab Results 01/05/25 01/05/25 01/05/25 Range/Units 16:18 16:18 16:18 WBC 7.34 (4.50-10.00) 10*3/uL RBC 4.79 (4.10-5.20) 10*6/uL Hgb 13.8 (12.0-15.0) g/dL Hct 42.4 (37.2-46.3) % MCV 88.5 (80.0-97.0) fL MCH 28.8 (27.0-32.0) pg MCHC 32.5 (32.0-37.0) g/dL Plt Count 206 (140-440) 10*3/uL MPV 12.4 H (9.5-12.2) fL Immature Gran % (Auto) 0.4 % Neutrophils % 63.4 % Lymphocytes % 25.1 % Monocytes % 8.4 % Eosinophils % 1.6 % Basophils % 1.1 % Immature Gran # 0.03 (0.00-0.04) 10*3/uL Neutrophils # 4.65 (1.80-7.70) 10*3/uL Lymphocytes # 1.84 (0.90-5.00) 10*3/uL Monocytes # 0.62 (0.20-1.00) 10*3/uL Eosinophils # 0.12 (0.04-0.35) 10*3/uL Basophils # 0.08 (0.00-0.10) 10*3/uL PT (10.0-12.5) sec INR (<1.2) APTT (22.0-30.0) sec Sodium 138 (137-145) mmol/L Potassium 4.2 (3.5-5.1) mmol/L Chloride 107 (98-107) mmol/L Carbon Dioxide 17 L (22-30) mmol/L Anion Gap 14 mmol/L BUN 22 H (7-17) mg/dL Creatinine 0.93 (0.52-1.04) mg/dL Est GFR (CKD-EPI)AfAm 76 (>60 ml/min/1.73 sqM) Est GFR (CKD-EPI)NonAf 66 (>60 ml/min/1.73 sqM) Glucose 111 H (74-99) mg/dL Plasma Lactic Acid Gumaro (0.7-2.0) mmol/L Calcium 9.9 (8.4-10.2) mg/dL Magnesium 1.8 (1.6-2.3) mg/dL Total Bilirubin 3.6 H (0.2-1.3) mg/dL AST 265 H (14-36) U/L ALT 199 H (4-34) U/L Alkaline Phosphatase 1313 H (38-126) U/L Troponin I <0.012 (0.000-0.034) ng/mL Total Protein 6.7 (6.3-8.2) g/dL Albumin 4.2 (3.5-5.0) g/dL Lipase 156 (23-300) U/L 01/05/25 01/05/25 Range/Units 16:34 16:34 WBC (4.50-10.00) 10*3/uL RBC (4.10-5.20) 10*6/uL Hgb (12.0-15.0) g/dL Hct (37.2-46.3) % MCV (80.0-97.0) fL MCH (27.0-32.0) pg MCHC (32.0-37.0) g/dL Plt Count (140-440) 10*3/uL MPV (9.5-12.2) fL Immature Gran % (Auto) % Neutrophils % % Lymphocytes % % Monocytes % % Eosinophils % % Basophils % % Immature Gran # (0.00-0.04) 10*3/uL Neutrophils # (1.80-7.70) 10*3/uL Lymphocytes # (0.90-5.00) 10*3/uL Monocytes # (0.20-1.00) 10*3/uL Eosinophils # (0.04-0.35) 10*3/uL Basophils # (0.00-0.10) 10*3/uL PT 10.2 (10.0-12.5) sec INR 0.9 (<1.2) APTT 21.6 L (22.0-30.0) sec Sodium (137-145) mmol/L Potassium (3.5-5.1) mmol/L Chloride (98-107) mmol/L Carbon Dioxide (22-30) mmol/L Anion Gap mmol/L BUN (7-17) mg/dL Creatinine (0.52-1.04) mg/dL Est GFR (CKD-EPI)AfAm (>60 ml/min/1.73 sqM) Est GFR (CKD-EPI)NonAf (>60 ml/min/1.73 sqM) Glucose (74-99) mg/dL Plasma Lactic Acid Gumaro 1.3 (0.7-2.0) mmol/L Calcium (8.4-10.2) mg/dL Magnesium (1.6-2.3) mg/dL Total Bilirubin (0.2-1.3) mg/dL AST (14-36) U/L ALT (4-34) U/L Alkaline Phosphatase (38-126) U/L Troponin I (0.000-0.034) ng/mL Total Protein (6.3-8.2) g/dL Albumin (3.5-5.0) g/dL Lipase (23-300) U/L Disposition Clinical Impression: Chest pain Disposition: ADMITTED IP TO THIS [facility] Condition: Fair Referrals: Jarvis Wagner DO [Primary Care Provider] - 1-2 days Decision Time: 18:04
[2025-01-05] MEDS: ONDANSETRON 4 MG/2 ML VIAL IVP STA (16:43)
[2025-01-05] MEDS: MORPHINE SULFATE 4 MG/ML SYRINGE IVP STA ×2 (16:44→18:37)
[2025-01-05 16:48] LABS: AST 265 U/L (14-36); Magnesium 1.8 mg/dL (1.6-2.3); Potassium 4.2 mmol/L (3.5-5.1)
[2025-01-05 16:49] LABS: Alkaline Phosphatase 1313 U/L (38-126)
[2025-01-05 17:15] LABS: INR 0.9 (<1.2); Partial Thromboplastin Time 21.6 sec (22.0-30.0); Prothrombin Time 10.2 sec (10.0-12.5)
--- NOTE | 2025-01-05 17:25 | CT ---
EXAMINATION TYPE: CT noncontrast chest abdomen pelvis. CT angio thor/abd DATE OF EXAM: 01/05/2025 5:16 PM COMPARISON: None. CLINICAL INDICATION: Female, 64 years old with history of suspect aortic dissection; PHH, back pain r adiating towards chest TECHNIQUE: Noncontrast CT chest followed by CT angiogram chest abdomen pelvis. A noncontrast CT chest Multiple a xial CT images of the chest, abdomen, and pelvis were obtained prior to and after the administration of IV contrast. 3-D reformats and maximum intensity projection format were performed on a separate wo rkstation. . Contrast used:100 ml mL of Isovue 370 without and with IV Contrast, CT DLP: 3286.8 mGycm, Automated exposure control for dose reduction was used. FINDINGS: ARTERIAL VASCULATURE: Ascending thoracic aorta and descending thoracic aorta are within normal limits for size. There is no evidence for intramural hematoma within the aorta on noncontrast imaging. Post contrast imaging demonstrates no evidence for dissection. The major vessels of the aortic arch are pa tent. The major vessels of the abdominal aorta are patent. PULMONARY ARTERIAL VASCULATURE: Normal caliber. No evidence of filling defect to suggest pulmonary em bolus. VENOUS SYSTEM: Unremarkable. LUNGS/ PLEURA: No focal consolidation, pneumothorax or pleural effusion. AIRWAY: Patent and unremarkable. HEART: Size within normal limits. MEDIASTINUM: No gross evidence of adenopathy. Calcified mediastinal and bilateral hilar lymph nodes, likely sequelae of previous granulomatous disease. MUSCULOSKELETAL: No acute osseous abnormalities SOFT TISSUES/LYMPH NODES: Unremarkable. LOWER NECK: No significant findings. Abdomen: LIVER: Unremarkable GALLBLADDER AND BILE DUCTS: Layering increased densities within the lumen consistent with gallstones are present. PANCREAS: Unremarkable. SPLEEN: Unremarkable. ADRENAL GLANDS: Unremarkable. KIDNEYS AND URETERS: No evidence of hydronephrosis or renal calculus. The ureters are unremarkable. Left renal cystic lesion without definite enhancement. PELVIS BLADDER: Unremarkable REPRODUCTIVE: Unremarkable. ABDOMEN & PELVIS STOMACH AND BOWEL: Previously sleeve gastrectomy. Scattered diverticula are noted throughout the colo n. No evidence of bowel obstruction. Small hiatal hernia. PERITONEUM/RETROPERITONEUM: No evidence of pneumoperitoneum or free fluid. MUSCULOSKELETAL: No acute osseous abnormalities LYMPH NODES: No gross evidence for lymphadenopathy. SOFT TISSUE/ABDOMINAL WALL: Unremarkable IMPRESSION: 1. No evidence for aortic dissection, aneurysm or occlusion. 2. No acute abnormality identified in the chest/abdomen/pelvis. 3. Nonacute findings as above. [facility], , 01/05/2025 5:23 PM
[2025-01-05] MEDS ORDERED: NITROGLYCERIN SL TABS 0.4 MG TAB SUBLINGUAL PRN (18:00)
[2025-01-05] MEDS: ASPIRIN 81 MG PO STA (18:15)
[2025-01-05] MEDS: hydrALAZINE HCL 20 MG/ML 1 ML VIAL IVP STA (21:15)
[2025-01-06 08:04] LABS: Cholesterol 264.00 mg/dL (0.00-200.00); HDL Cholesterol 102.00 mg/dL (40.00-60.00); LDL Cholesterol,Calculated 152.7 mg/dL (0.0-131.0); Triglycerides 46.40 mg/dL (0.00-149.00); VLDL Calculation 9.28 mg/dL (5.00-40.00)
--- NOTE | 2025-01-06 09:18 | P.CRDCN ---
History of Present Illness Consult date: 01/06/25 History of present illness: HISTORY OF PRESENTING ILLNESS: Known to Dr. Breaux Past medical history of gastric sleeve surgery in 2013, obesity 64-year-old presented to the hospital because of right upper quadrant pain, radiating to back along with symptoms of GERD and worsening of pain symptoms after eating food. Cardiology was consulted for chest pain evaluation. Over last 1 to 2 days she has been experiencing right upper quadrant pain which she attributes to her twisted rib which is radiating to her back. She also reports that her GERD symptoms are more worse especially after eating food lately. She also feels that the back pain does get worse slightly after eating food. On admission her tropes were negative however her AST and ALT were mildly elevated however she denies any history of smoking alcohol or drug use marijuana use. She has also had elevated ALP and elevated total bili. She reports that since 2021 she has lost multiple family members and she has been in emotional distress and has been eating more. She has gained back 70 pounds of weight. ................................................................................ .............................................................. Pertient Vitals: 174/76, heart rate 66 bpm Pertient Labs: Hb 13.8, BUN 22, creatinine 0.9, AST 265, ALT 199, ALP 1313, troponin negative, LDL 152 EKG: Sinus rhythm ................................................................................ .............................................................. REVIEW OF SYSTEMS: 14 point review of system is negative except what is mentioned above in HPI. ................................................ ................................................................................ .............. PHYSICAL EXAMINATION: Neck: Brisk carotid upstroke, no jugular venous distention. Lungs: Clear to auscultation. Heart: Regular rate and rhythm, S1-S2, , no murmur or rub. Abdomen: Soft , positive bowel sounds. Mild tenderness in the right upper quadrant noticed Extremities: No edema, intact distal pulses. Neuro: Alert, oritented, no focal deficits. Detailed neuro exam was not performed. ............. ................................................................................ ................................................. ASSESSMENT: # Atypical chest pain, ACS has been ruled out # Transaminitis with elevated ALP and bilirubin suggestive of obstructive hepatopathy # Morbid obesity # Essential hypertension # Dyslipidemia # Prior history of gastric sleeve surgery with resulting anemia from malabsorption syndrome. PLAN: Obtain echocardiogram, NT-proBNP, lipids and A1c levels and TSH level At home she is on Lipitor 10 mg. Will hold it for now because of transaminitis and resume it once it resolves because of elevated LDL Start losartan 25 mg daily for elevated blood pressure Recommend GI workup with possible MRCP or HIDA scan. Further recommendations to follow Ervin Ludwig MD, FACC, RPVI Past Medical History Past Medical History: Asthma, Blood Disorder, Hypertension, Thyroid Disorder Additional Past Medical History / Comment(s): anemia History of Any Multi-Drug Resistant Organisms: None Reported Past Surgical History: Bariatric Surgery, Tonsillectomy Additional Past Surgical History / Comment(s): gastric sleeve Past Anesthesia/Blood Transfusion Reactions: No Reported Reaction Past Psychological History: Depression Smoking Status: Former smoker Past Alcohol Use History: None Reported Additional Past Alcohol Use History / Comment(s): states smoked 1 year in college in the 1980s Past Drug Use History: None Reported - Past Family History Mother Additional Family Medical History / Comment(s): uterine cancer Medications and Allergies Home Medications Medication Instructions Recorded Confirmed Type Atorvastatin [Lipitor] 10 mg PO DAILY 01/05/25 01/05/25 History DULoxetine HCL [Cymbalta] 60 mg PO DAILY 01/05/25 01/05/25 History Multivitamin [Multivitamins Adult 1 tab PO DAILY 01/05/25 01/05/25 History Gummies] Olmesartan Medoxomil 40 mg PO DAILY 01/05/25 01/05/25 History Vitamin B-12 Gummy 1 tab PO DAILY 01/05/25 01/05/25 History Vitamin D3 Gummy 1 tab PO DAILY 01/05/25 01/05/25 History Allergies Allergy/AdvReac Type Severity Reaction Status Date / Time codeine Allergy Vomiting Verified 01/05/25 18:58 sulfamethoxazole Allergy Rash/Hives Verified 01/05/25 18:58 [From Bactrim] trimethoprim [From Bactrim] Allergy Rash/Hives Verified 01/05/25 18:58 Physical Exam Vitals: Vital Signs Temp Pulse Pulse Resp BP BP BP 01/06/25 07:10 98.7 F 85 16 168/75 01/06/25 00:22 98.7 F 66 16 135/71 01/05/25 22:59 68 18 174/76 01/05/25 22:10 79 18 185/81 07/20/25 21:09 71 18 197/88 01/05/25 18:11 58 L 16 212/92 01/05/25 17:13 60 19 183/88 01/05/25 16:27 58 L 01/05/25 15:52 97.5 F L 57 L 18 202/119 Pulse Ox 01/06/25 07:10 99 01/06/25 00:22 96 01/05/25 22:59 96 01/05/25 22:10 95 01/05/25 21:09 97 01/05/25 18:11 100 01/05/25 17:13 100 01/05/25 16:27 01/05/25 15:52 99 Intake and Output 01/05/25 01/06/25 01/06/25 22:59 06:59 14:59 Other: Voiding Method Toilet Weight 154.221 kg 154.221 kg Results 01/05/25 16:18 01/05/25 16:18 Cardiac Enzymes 01/05/25 01/05/25 01/05/25 Range/Units 16:18 16:18 19:37 AST 265 H (14-36) U/L Troponin I <0.012 <0.012 (0.000-0.034) ng/mL 01/05/25 Range/Units 22:53 AST (14-36) U/L Troponin I <0.012 (0.000-0.034) ng/mL Coagulation 01/05/25 Range/Units 16:34 PT 10.2 (10.0-12.5) sec APTT 21.6 L (22.0-30.0) sec Lipids 01/05/25 Range/Units 16:18 Triglycerides 46.40 (0.00-149.00) mg/dL Cholesterol 264.00 H (0.00-200.00) mg/dL HDL Cholesterol 102.00 H (40.00-60.00) mg/dL Cholesterol/HDL Ratio 2.59 Ratio CBC 01/05/25 Range/Units 16:18 WBC 7.34 (4.50-10.00) 10*3/uL RBC 4.79 (4.10-5.20) 10*6/uL Hgb 13.8 (12.0-15.0) g/dL Hct 42.4 (37.2-46.3) % Plt Count 206 (140-440) 10*3/uL Comprehensive Metabolic Panel 01/05/25 Range/Units 16:18 Sodium 138 (137-145) mmol/L Potassium 4.2 (3.5-5.1) mmol/L Chloride 107 (98-107) mmol/L Carbon Dioxide 17 L (22-30) mmol/L BUN 22 H (7-17) mg/dL Creatinine 0.93 (0.52-1.04) mg/dL Glucose 111 H (74-99) mg/dL Calcium 9.9 (8.4-10.2) mg/dL AST 265 H (14-36) U/L ALT 199 H (4-34) U/L Alkaline Phosphatase 1313 H (38-126) U/L Total Protein 6.7 (6.3-8.2) g/dL Albumin 4.2 (3.5-5.0) g/dL Current Medications Generic Name Dose Route Start Last Admin Trade Name Freq PRN Reason Stop Dose Admin Aspirin 325 mg 01/06/25 09:00 Aspirin 325 Mg Tab PO DAILY NITA Hydrocortisone 1 applic 01/06/25 09:03 Hydrocortisone 1% Cream 30 Gm Tube TOPICAL TID PRN Skin Irritation Protocol Nitroglycerin 0.4 mg 01/05/25 18:00 Nitroglycerin Sl Tabs 0.4 Mg Tab SUBLINGUAL Q5M PRN Chest Pain Intake and Output 01/05/25 01/06/25 01/06/25 22:59 06:59 14:59 Other: Voiding Method Toilet Weight 154.221 kg 154.221 kg 01/05/25 16:18 01/05/25 16:18
[2025-01-06 09:39] LABS: Basophils # (A) 0.03 10*3/uL (0.00-0.10); Basophils % (A) 0.4 %; Eosinophils # (A) 0.05 10*3/uL (0.04-0.35); Eosinophils % (A) 0.7 %; HCT 40.8 % (37.2-46.3); HGB 13.4 g/dL (12.0-15.0); Lymphocytes # (A) 0.94 10*3/uL (0.90-5.00); Lymphocytes % (A) 13.4 %; MCH 28.9 pg (27.0-32.0); MCHC 32.8 g/dL (32.0-37.0); MCV 88.1 fL (80.0-97.0); Monocytes # (A) 0.71 10*3/uL (0.20-1.00); Monocytes % (A) 10.2 %; Neutrophils # (A) 5.22 10*3/uL (1.80-7.70); Neutrophils % (A) 74.7 %; Platelet Count 217 10*3/uL (140-440); RBC 4.63 10*6/uL (4.10-5.20); RDW 16.8 % (11.5-14.5); WBC 6.99 10*3/uL (4.50-10.00)
[2025-01-06 10:17] LABS: ALT 239 U/L (4-34); AST 358 U/L (14-36); African American GFR (CKD) 84 (>60 ml/min/1.73 sqM); Albumin 3.6 g/dL (3.5-5.0); Albumin/Globulin Ratio 1.4; Anion Gap 8 mmol/L; Blood Urea Nitrogen 17 mg/dL (7-17); Calcium 9.6 mg/dL (8.4-10.2); Carbon Dioxide 29 mmol/L (22-30); Chloride 101 mmol/L (98-107); Globulin 2.5 g/dL; Glucose 107 mg/dL (74-99); Non-African American GFR(CKD) 73 (>60 ml/min/1.73 sqM); Potassium 4.3 mmol/L (3.5-5.1); Sodium 138 mmol/L (137-145); Total Protein 6.1 g/dL (6.3-8.2)
[2025-01-06 10:25] LABS: Alkaline Phosphatase 1257 U/L (38-126)
[2025-01-06] MEDS: HYDROCORTISONE 1% CREAM 30 GM TUBE TOPICAL PRN (10:39)
[2025-01-06] MEDS: ASPIRIN 325 MG TAB PO SCH (10:42)
[2025-01-06] MEDS: LOSARTAN 50 MG TAB PO SCH (10:42)
--- NOTE | 2025-01-06 11:42 | P.HPIM ---
History of Present Illness H&P Date: 01/06/25 This is a pleasant 64-year-old female, past medical history significant for sleeve gastrectomy-Dr. Dawn, anemia, asthma, hypertension, hypothyroidism, former nicotine dependence, depression, obesity and multiple other medical issues presented to the ER with complaints of right lower chest pain/right upper quadrant abdominal pain radiating through to the back accompanied by nausea, increased indigestion, accompanied by dark yellow urine over the last couple days worsened after eating. Troponins negative, EKG reported sinus rhythm. Elevated LFTs; T. bili 3.6, AST 265, ALT 199, alk phos 1313 with repeat levels pending. Lactic acid 1.3/ bicarb 17, BUN 22, creatinine 0.93. Afebrile, normal WBC. CT chest abdomen pelvis reported unremarkable liver ,layering increased densities within the lumen consistent with gallstones, pancreas unremarkable. no hydronephrosis or renal calculi, ureters are unremarkable left renal cystic lesion without definite enhancement. No evidence for aortic dissection, aneurysm or occlusion. Review of Systems ROS Statement: Those systems with pertinent positive or pertinent negative responses have been documented in the HPI. ROS Other: All systems not noted in ROS Statement are negative. Past Medical History Past Medical History: Asthma, Blood Disorder, Hypertension, Thyroid Disorder Additional Past Medical History / Comment(s): anemia History of Any Multi-Drug Resistant Organisms: None Reported Past Surgical History: Bariatric Surgery, Tonsillectomy Additional Past Surgical History / Comment(s): gastric sleeve Past Anesthesia/Blood Transfusion Reactions: No Reported Reaction Past Psychological History: Depression Smoking Status: Former smoker Past Alcohol Use History: None Reported Additional Past Alcohol Use History / Comment(s): states smoked 1 year in college in the 1980s Past Drug Use History: None Reported - Past Family History Mother Additional Family Medical History / Comment(s): uterine cancer Medications and Allergies Home Medications Medication Instructions Recorded Confirmed Type Atorvastatin [Lipitor] 10 mg PO DAILY 01/05/25 01/05/25 History DULoxetine HCL [Cymbalta] 60 mg PO DAILY 01/05/25 01/05/25 History Multivitamin [Multivitamins Adult 1 tab PO DAILY 01/05/25 01/05/25 History Gummies] Olmesartan Medoxomil 40 mg PO DAILY 01/05/25 01/05/25 History Vitamin B-12 Gummy 1 tab PO DAILY 01/05/25 01/05/25 History Vitamin D3 Gummy 1 tab PO DAILY 01/05/25 01/05/25 History Allergies Allergy/AdvReac Type Severity Reaction Status Date / Time codeine Allergy Vomiting Verified 01/05/25 18:58 sulfamethoxazole Allergy Rash/Hives Verified 01/05/25 18:58 [From Bactrim] trimethoprim [From Bactrim] Allergy Rash/Hives Verified 01/05/25 18:58 Physical Exam Vitals: Vital Signs Temp Pulse Pulse Resp BP BP BP 01/06/25 07:10 98.7 F 85 16 168/75 01/06/25 00:22 98.7 F 66 16 135/71 01/05/25 22:59 68 18 174/76 01/05/25 22:10 79 18 185/81 01/05/25 21:09 71 18 197/88 01/05/25 18:11 58 L 16 212/92 01/05/25 17:13 60 19 183/88 01/05/25 16:27 58 L 01/05/25 15:52 97.5 F L 57 L 18 202/119 Pulse Ox 01/06/25 07:10 99 01/06/25 00:22 96 01/05/25 22:59 96 01/05/25 22:10 95 01/05/25 21:09 97 01/05/25 18:11 100 01/05/25 17:13 100 01/05/25 16:27 01/05/25 15:52 99 Intake and Output 01/05/25 01/06/25 01/06/25 22:59 06:59 14:59 Other: Voiding Method Toilet Toilet Weight 154.221 kg 154.221 kg PHYSICAL EXAM: VITAL SIGNS: [Reviewed] GENERAL: Pleasant, well-nourished female sitting up in bed, alert and oriented x 3, no acute distress HEENT: Normocephalic, atraumatic, pupils equal and reactive, positive scleral icterus NECK: Supple, no JVD. No thyroid enlargement. No LNs CARDIOVASCULAR: S1, S2 regular. No murmur RESPIRATION: Unlabored, equal air entry, clear to auscultation. ABDOMEN: Soft, obese, minimal right upper quadrant tenderness. No guarding. no masses palpable. Bowel sounds LEGS: No edema. no swelling NERVOUS SYSTEM: Cranial N 2-12 grossly normal.No focal deficits. Strength and sensation grossly intact. Skin: Warm and dry, chest area with small scabs-reported from itching. Results CBC & Chem 7: 01/06/25 09:07 01/06/25 09:07 Labs: Abnormal Lab Results - Last 24 Hours (Table) 01/05/25 01/05/25 01/05/25 Range/Units 16:18 16:18 16:18 RDW (11.5-14.5) % MPV 12.4 H (9.5-12.2) fL APTT (22.0-30.0) sec Carbon Dioxide 17 L (22-30) mmol/L BUN 22 H (7-17) mg/dL Glucose 111 H (74-99) mg/dL Total Bilirubin 3.6 H (0.2-1.3) mg/dL AST 265 H (14-36) U/L ALT 199 H (4-34) U/L Alkaline Phosphatase 1313 H (38-126) U/L Total Protein (6.3-8.2) g/dL Cholesterol 264.00 H (0.00-200.00) mg/dL LDL Cholesterol, Calc 152.7 H (0.0-131.0) mg/dL HDL Cholesterol 102.00 H (40.00-60.00) mg/dL 01/05/25 01/06/25 01/06/25 Range/Units 16:34 09:07 09:07 RDW 16.8 H (11.5-14.5) % MPV 12.8 H (9.5-12.2) fL APTT 21.6 L (22.0-30.0) sec Carbon Dioxide (22-30) mmol/L BUN (7-17) mg/dL Glucose 107 H (74-99) mg/dL Total Bilirubin 6.2 H (0.2-1.3) mg/dL AST 358 H (14-36) U/L ALT 239 H (4-34) U/L Alkaline Phosphatase 1257 H (38-126) U/L Total Protein 6.1 L (6.3-8.2) g/dL Cholesterol (0.00-200.00) mg/dL LDL Cholesterol, Calc (0.0-131.0) mg/dL HDL Cholesterol (40.00-60.00) mg/dL Thrombosis Risk Factor Assmnt - Choose All That Apply Any of the Below Risk Factors Present?: Yes Each Factor Represents 1 point: Obesity (BMI >25) Each Risk Factor Represents 2 Points: Age 61-74 years Thrombosis Risk Factor Assessment Total Risk Factor Score: 3 Thrombosis Risk Factor Assessment Level: Moderate Risk Assessment and Plan Assessment: Chest pain, negative tropes, ACS has been ruled out, cardiology following Hyperbilirubinemia, transaminitis with elevated alk phosphatase. CT reporting gallstones, suspect choledocholithiasis, general surgery following History of gastric sleeve Chronic anemia secondary to the above Hypertension Hyperlipidemia Morbid obesity, BMI 47 Plan: Continue with current medication regimen ,monitoring and symptomatic treatment. General surgery consulted, no GI available this week, repeat bili/LFTs pending. echo, TSH ordered. Evaluated by cardiology, recommendations noted. The impression and plan of care has been dictated as directed. : I performed a history and examination of this patient, discussed the same with the dictator. I agree with the dictator's note ,documented as a scribe. Any additional findings or plans will be noted.
[2025-01-06] MEDS: SODIUM CHLORIDE 0.9% 1,000 ML IV SCH (12:05)
--- NOTE | 2025-01-06 12:45 | CA ---
Transthoracic Echo Report Name: Maricel Dye Age: 64 Gender: F : 1960 Exam Date: 01/06/2025 11:13 Exam Location: [facility] Ht (in): 71 Wt (lb): 340 Ordering Physician: Sandra Barney Attending/Referring Phys: Planning Associate Ting Mercado RDCS Procedure CPT: Indications: Chest Pain Cardiac Hx: Technical Quality: Good Contrast 1: Total Dose (mL): Contrast 2: Total Dose (mL): MEASUREMENTS (Male / Female) Normal Values 2D ECHO LV Diastolic Diameter PLAX 4.8 cm 4.2 - 5.9 / 3.9 - 5.3 cm LV Systolic Diameter PLAX 3.4 cm IVS Diastolic Thickness 1.3 cm 0.6 - 1.0 / 0.6 - 0.9 cm LVPW Diastolic Thickness 1.3 cm 0.6 - 1.0 / 0.6 - 0.9 cm LV Relative Wall Thickness 0.5 RV Internal Dim ED PLAX 3.6 cm LA Systolic Diameter LX 3.8 cm 3.0 - 4.0 / 2.7 - 3.8 cm LV Diastolic Volume MOD 4C 123.0 cm??? LV Systolic Volume MOD 4C 46.6 cm??? LV Ejection Fraction MOD 4C 62.1 % LV Cardiac Index MOD 4C 1498.1 cm???/min???m??? LV Diastolic Length 4C 8.7 cm LV Systolic Length 4C 6.9 cm LV Diastolic Volume MOD 2C 103.2 cm??? LV Systolic Volume MOD 2C 42.2 cm??? LV Ejection Fraction MOD 2C 59.1 % LV Cardiac Index MOD 2C 1194.1 cm???/min???m??? LV Diastolic Length 2C 9.2 cm LV Systolic Length 2C 7.3 cm LA Volume 81.0 cm??? 18 - 58 / 22 - 52 cm??? LA Volume Index 28.3 cm???/m??? 16 - 28 cm???/m??? M-MODE Aortic Root Diameter MM 3.3 cm AV Cusp Separation MM 2.3 cm DOPPLER AV Peak Velocity 170.9 cm/s AV Peak Gradient 11.7 mmHg MV Area PHT 2.8 cm??? Mitral E Point Velocity 79.2 cm/s Mitral A Point Velocity 80.2 cm/s Mitral E to A Ratio 1.0 MV Deceleration Time 274.3 ms FINDINGS Left Ventricle Left ventricular ejection fraction is estimated at 55-60 %. Left ventricular cavity size normal. Mild concentric left ventricular hypertrophy. Normal left ventricular wall motion. Right Ventricle Normal right ventricular size. Unable to estimate the right ventricular systolic pressure. Right Atrium Normal right atrial size. No right atrial thrombus or mass seen. Left Atrium Normal left atrial size. No left atrial thrombus or mass present. Mitral Valve Structurally normal mitral valve. No mitral stenosis, regurgitation or prolapse. Aortic Valve Trileaflet aortic valve. No aortic valve stenosis or regurgitation. Tricuspid Valve Structurally normal tricuspid valve. No tricuspid stenosis, regurgitation or prolapse. Pulmonic Valve Structurally normal pulmonic valve. Trace pulmonic regurgitation. Pericardium No pericardial effusion. Aorta Normal size aortic root and proximal ascending aorta. CONCLUSIONS LVEF 55% Mild concentric LVH. No obvious regional wall motion abnormality Normal RV size and systolic function No significant valvular dysfunction appreciated Previewed by: Dr Ervin Ludwig (Electronically Signed) Final Date: 06 January 2025 12:44
--- NOTE | 2025-01-06 12:45 | P.GSCN ---
History of Present Illness Consult date: 01/06/25 History of present illness: CHIEF COMPLAINT: Chest pain HISTORY OF PRESENT ILLNESS: This is a 64-year-old female who presented the hospital with complaints of chest pain that radiate to the back. She also reports nausea and heartburn. She did have 1 episode of vomiting yesterday. Patient reports symptoms started around 10 AM. Prior to that she had eggs and sausage for breakfast. Patient reports that she has had this chest pain radiating to the back for about 1 year intermittently. She does report now looking back that symptoms did seem to be related to after eating a fatty meal. She has been having dark urine for the last 5 months. She had a CTA of the chest and abdomen that did show evidence of gallstones. Her total bilirubin and LFTs are elevated. Past surgical history does include lap band and a sleeve gastrectomy. Patient reports that she initially thought the pain was related to a twisted rib on the right side of the chest. 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 PAST MEDICAL HISTORY: Asthma, thyroid disorder PAST SURGICAL HISTORY: Sleeve gastrectomy, lap band placement with removal MEDICATIONS: See below ALLERGIES: See below SOCIAL HISTORY: No illicit drug use. REVIEW OF SYSTEMS: CONSTITUTIONAL: Denies fever or chills. HEENT: Denies blurred vision, vision changes, or eye pain. Denies hemoptysis CARDIOVASCULAR: Denies chest pain or pressure. RESPIRATORY: No shortness of breath. GASTROINTESTINAL: See HPI for pertinent findings HEMATOLOGIC: Denies bleeding disorders. GENITOURINARY: Denies any blood in urine or increased urinary frequency. SKIN: Denies pruitis. Denies rash. PHYSICAL EXAM: VITAL SIGNS: Reviewed GENERAL: Well-developed in no acute distress. HEENT: Jaundiced ABDOMEN: Soft. Obese. Nondistended. Nontender NEUROLOGIC: Alert and oriented. Cranial nerves II through XII grossly intact. LABORATORY DATA: WBC 6.99 Hgb 13.4 platelets 217 Sodium is 138 potassium is 4.3 creatinine 0.85 Total bilirubin 3.6 up to 6.2 AST 358 ALT 239 alk phos 1257 Troponins negative x 3 IMAGING: Chest and abdomen CTA reports no evidence of aortic dissection aneurysm or occlusion. No acute abnormality identified. Layering increased densities within the lumen consistent with gallstones. ASSESSMENT: 1. Cholecystitis 2. Possible choledocholithiasis with elevated total bilirubin and LFTs. Abdominal pain has improved. PLAN: -Advance diet to full liquids -Repeat total bilirubin and liver enzymes in a.m. -If lab results worsen patient may require transfer for ERCP by GI team. There is no GI service available at this facility this week. -Continue IV fluids -Start to be antibiotics -Continue to monitor Physician Outside Production Inspector note has been reviewed by physician. Signing provider agrees with the documented findings, assessment, and plan of care. Past Medical History Past Medical History: Asthma, Blood Disorder, Hypertension, Thyroid Disorder Additional Past Medical History / Comment(s): anemia History of Any Multi-Drug Resistant Organisms: None Reported Past Surgical History: Bariatric Surgery, Tonsillectomy Additional Past Surgical History / Comment(s): gastric sleeve Past Anesthesia/Blood Transfusion Reactions: No Reported Reaction Past Psychological History: Depression Smoking Status: Former smoker Past Alcohol Use History: None Reported Additional Past Alcohol Use History / Comment(s): states smoked 1 year in college in the 1980s Past Drug Use History: None Reported - Past Family History Mother Additional Family Medical History / Comment(s): uterine cancer Medications and Allergies Home Medications Medication Instructions Recorded Confirmed Type Atorvastatin [Lipitor] 10 mg PO DAILY 01/05/25 01/05/25 History DULoxetine HCL [Cymbalta] 60 mg PO DAILY 01/05/25 01/05/25 History Multivitamin [Multivitamins Adult 1 tab PO DAILY 01/05/25 01/05/25 History Gummies] Olmesartan Medoxomil 40 mg PO DAILY 01/05/25 01/05/25 History Vitamin B-12 Gummy 1 tab PO DAILY 01/05/25 01/05/25 History Vitamin D3 Gummy 1 tab PO DAILY 01/05/25 01/05/25 History Allergies Allergy/AdvReac Type Severity Reaction Status Date / Time codeine Allergy Vomiting Verified 01/05/25 18:58 sulfamethoxazole Allergy Rash/Hives Verified 01/05/25 18:58 [From Bactrim] trimethoprim [From Bactrim] Allergy Rash/Hives Verified 01/05/25 18:58 Surgical - Exam Vital Signs Temp Pulse Resp BP Pulse Ox 97.5 F L 57 L 18 202/119 99 01/05/25 15:52 01/05/25 15:52 01/05/25 15:52 01/05/25 15:52 01/05/25 15:52 Results - Labs 01/06/25 09:07 01/06/25 09:07 Abnormal Lab Results - Last 24 Hours (Table) 01/05/25 01/05/25 01/05/25 Range/Units 16:18 16:18 16:18 RDW (11.5-14.5) % MPV 12.4 H (9.5-12.2) fL APTT (22.0-30.0) sec Carbon Dioxide 17 L (22-30) mmol/L BUN 22 H (7-17) mg/dL Glucose 111 H (74-99) mg/dL Total Bilirubin 3.6 H (0.2-1.3) mg/dL AST 265 H (14-36) U/L ALT 199 H (4-34) U/L Alkaline Phosphatase 1313 H (38-126) U/L Total Protein (6.3-8.2) g/dL Cholesterol 264.00 H (0.00-200.00) mg/dL LDL Cholesterol, Calc 152.7 H (0.0-131.0) mg/dL HDL Cholesterol 102.00 H (40.00-60.00) mg/dL 01/05/25 01/06/25 01/06/25 Range/Units 16:34 09:07 09:07 RDW 16.8 H (11.5-14.5) % MPV 12.8 H (9.5-12.2) fL APTT 21.6 L (22.0-30.0) sec Carbon Dioxide (22-30) mmol/L BUN (7-17) mg/dL Glucose 107 H (74-99) mg/dL Total Bilirubin 6.2 H (0.2-1.3) mg/dL AST 358 H (14-36) U/L ALT 239 H (4-34) U/L Alkaline Phosphatase 1257 H (38-126) U/L Total Protein 6.1 L (6.3-8.2) g/dL Cholesterol (0.00-200.00) mg/dL LDL Cholesterol, Calc (0.0-131.0) mg/dL HDL Cholesterol (40.00-60.00) mg/dL Diabetes panel 01/05/25 01/05/25 01/06/25 Range/Units 16:18 16:18 09:07 Sodium 138 138 (137-145) mmol/L Potassium 4.2 4.3 (3.5-5.1) mmol/L Chloride 107 101 (98-107) mmol/L Carbon Dioxide 17 L 29 (22-30) mmol/L BUN 22 H 17 (7-17) mg/dL Creatinine 0.93 0.85 (0.52-1.04) mg/dL Glucose 111 H 107 H (74-99) mg/dL Calcium 9.9 9.6 (8.4-10.2) mg/dL AST 265 H 358 H (14-36) U/L ALT 199 H 239 H (4-34) U/L Alkaline Phosphatase 1313 H 1257 H (38-126) U/L Total Protein 6.7 6.1 L (6.3-8.2) g/dL Albumin 4.2 3.6 (3.5-5.0) g/dL Triglycerides 46.40 (0.00-149.00) mg/dL HDL Cholesterol 102.00 H (40.00-60.00) mg/dL Thyroid panel 01/06/25 Range/Units 09:06 TSH 1.960 (0.465-4.680) mIU/L Calcium panel 01/05/25 01/06/25 Range/Units 16:18 09:07 Calcium 9.9 9.6 (8.4-10.2) mg/dL Albumin 4.2 3.6 (3.5-5.0) g/dL Pituitary panel 01/05/25 01/06/25 01/06/25 Range/Units 16:18 09:06 09:07 Sodium 138 138 (137-145) mmol/L Potassium 4.2 4.3 (3.5-5.1) mmol/L Chloride 107 101 (98-107) mmol/L Carbon Dioxide 17 L 29 (22-30) mmol/L BUN 22 H 17 (7-17) mg/dL Creatinine 0.93 0.85 (0.52-1.04) mg/dL Glucose 111 H 107 H (74-99) mg/dL Calcium 9.9 9.6 (8.4-10.2) mg/dL TSH 1.960 (0.465-4.680) mIU/L Adrenal panel 01/05/25 01/06/25 Range/Units 16:18 09:07 Sodium 138 138 (137-145) mmol/L Potassium 4.2 4.3 (3.5-5.1) mmol/L Chloride 107 101 (98-107) mmol/L Carbon Dioxide 17 L 29 (22-30) mmol/L BUN 22 H 17 (7-17) mg/dL Creatinine 0.93 0.85 (0.52-1.04) mg/dL Glucose 111 H 107 H (74-99) mg/dL Calcium 9.9 9.6 (8.4-10.2) mg/dL Total Bilirubin 3.6 H 6.2 H (0.2-1.3) mg/dL AST 265 H 358 H (14-36) U/L ALT 199 H 239 H (4-34) U/L Alkaline Phosphatase 1313 H 1257 H (38-126) U/L Total Protein 6.7 6.1 L (6.3-8.2) g/dL Albumin 4.2 3.6 (3.5-5.0) g/dL
[2025-01-06] MEDS: PIPERACILLIN-TAZOBACTAM 3.375 GM in SODIUM CHLORIDE 0.9% 100 ML IVPB SCH (16:55)
[2025-01-06] MEDS: IBUPROFEN 400 MG TAB PO PRN (23:48)
[2025-01-07 07:34] LABS: ALT 231 U/L (4-34); AST 303 U/L (14-36); African American GFR (CKD) 77 (>60 ml/min/1.73 sqM); Albumin 3.5 g/dL (3.5-5.0); Albumin/Globulin Ratio 1.5; Anion Gap 10 mmol/L; Blood Urea Nitrogen 14 mg/dL (7-17); Calcium 9.5 mg/dL (8.4-10.2); Carbon Dioxide 21 mmol/L (22-30); Chloride 110 mmol/L (98-107); Globulin 2.3 g/dL; Glucose 95 mg/dL (74-99); Non-African American GFR(CKD) 67 (>60 ml/min/1.73 sqM); Potassium 4.2 mmol/L (3.5-5.1); Sodium 141 mmol/L (137-145); Total Protein 5.8 g/dL (6.3-8.2)
[2025-01-07 07:54] LABS: Alkaline Phosphatase 1124 U/L (38-126)
[2025-01-07 07:56] LABS: Basophils # (A) 0.04 10*3/uL (0.00-0.10); Basophils % (A) 0.8 %; Eosinophils # (A) 0.15 10*3/uL (0.04-0.35); Eosinophils % (A) 3.0 %; HCT 38.7 % (37.2-46.3); HGB 12.4 g/dL (12.0-15.0); Lymphocytes # (A) 1.25 10*3/uL (0.90-5.00); Lymphocytes % (A) 24.7 %; MCH 28.2 pg (27.0-32.0); MCHC 32.0 g/dL (32.0-37.0); MCV 88.2 fL (80.0-97.0); Monocytes # (A) 0.61 10*3/uL (0.20-1.00); Monocytes % (A) 12.1 %; Neutrophils # (A) 2.99 10*3/uL (1.80-7.70); Neutrophils % (A) 59.0 %; Platelet Count 193 10*3/uL (140-440); RBC 4.39 10*6/uL (4.10-5.20); RDW 16.8 % (11.5-14.5); WBC 5.06 10*3/uL (4.50-10.00)
--- NOTE | 2025-01-07 11:05 | P.PN ---
Subjective Progress Note Date: 01/07/25 SURGICAL PROGRESS NOTE CHIEF COMPLAINT: Chest pain HISTORY OF PRESENT ILLNESS: Patient sitting up in bedside chair comfortably. She is still jaundiced. She does report some mild soreness in the epigastric and right upper quadrant area. She does report that her urine is dark but getting slightly oriental medicine practitioner. She is itching. Afebrile. WBC is 5.06 total bilirubin 6.2 up to 7.3 AST 358-303 ALT 239-231 alk phos [id number] PHYSICAL EXAM: VITAL SIGNS: Reviewed. GENERAL: Well-developed in no acute distress. HEENT: Scleral icterus present ABDOMEN: Soft. Nondistended. Mild discomfort with palpation right upper quadrant and epigastric area NEUROLOGIC: Alert and oriented. Cranial nerves II through XII grossly intact. SKIN: Jaundiced ASSESSMENT: 1. Cholecystitis 2. Possible choledocholithiasis with elevated total bilirubin and LFTs. PLAN: - Continue to monitor - Repeat CMP in AM. If LFTs and total bilirubin worsen or symptoms worsen she may require transfer to be evaluated by GI service. Otherwise continue to monitor labs and plan for laparoscopic cholecystectomy when LFTs and total bilirubin have shown improvement. - Continue antibiotics - Benadryl added as needed for itching - Full liquid diet - Continue antibiotics Physician Systems Protection Technician note has been reviewed by physician. Signing provider agrees with the documented findings, assessment, and plan of care. Objective - Vital Signs Vital signs: Vital Signs Temp 98.1 F 01/07/25 07:00 Pulse 57 L 01/07/25 07:00 Resp 16 01/07/25 07:00 BP 145/83 01/07/25 07:00 Pulse Ox 97 01/07/25 07:00 FiO2 Intake & Output 01/06/25 01/07/25 01/07/25 18:59 06:59 18:59 Other: Voiding Method Toilet # Voids 1 2 1 - Labs CBC & Chem 7: 01/07/25 05:46 01/07/25 05:46 Labs: Abnormal Lab Results - Last 24 Hours (Table) 01/07/25 01/07/25 Range/Units 05:46 05:46 RDW 16.8 H (11.5-14.5) % MPV 12.5 H (9.5-12.2) fL Chloride 110 H (98-107) mmol/L Carbon Dioxide 21 L (22-30) mmol/L Total Bilirubin 7.3 H (0.2-1.3) mg/dL AST 303 H (14-36) U/L ALT 231 H (4-34) U/L Alkaline Phosphatase 1124 H (38-126) U/L Total Protein 5.8 L (6.3-8.2) g/dL
--- NOTE | 2025-01-07 13:36 | P.PN ---
Subjective Progress Note Date: 01/07/25 01/06/25 This is a pleasant 64-year-old female, past medical history significant for sleeve gastrectomy-Dr. Dawn, anemia, asthma, hypertension, hypothyroidism, former nicotine dependence, depression, obesity and multiple other medical issues presented to the ER with complaints of right lower chest pain/right upper quadrant abdominal pain radiating through to the back accompanied by nausea, increased indigestion, accompanied by dark yellow urine over the last couple days worsened after eating. Troponins negative, EKG reported sinus rhythm. Elevated LFTs; T. bili 3.6, AST 265, ALT 199, alk phos 1313 with repeat levels pending. Lactic acid 1.3/ bicarb 17, BUN 22, creatinine 0.93. Afebrile, normal WBC. CT chest abdomen pelvis reported unremarkable liver ,layering increased densities within the lumen consistent with gallstones, pancreas unremarkable. no hydronephrosis or renal calculi, ureters are unremarkable left renal cystic lesion without definite enhancement. No evidence for aortic dissection, aneurysm or occlusion. 01/07/2025 maintained on IV fluid hydration, Zosyn. Echo reported normal LV function, EF 55% with no significant valvular dysfunction appreciated. T. bili increased to 7.3, AST decreased to 303, ALT decreased to 231, alk phos decreased to 1124. Bicarb 21 BUN 14, creatinine 0.9, urine less dark. Denies chest pain, palpitations or shortness of breath. Denies nausea, vomiting. Denies abdominal pain, reports minimal right upper quadrant "soreness". Afebrile, normal WBC. Hemoglobin 12.4, platelets 193. Objective - Vital Signs Vital signs: Vital Signs Temp 98.1 F 01/07/25 07:00 Pulse 57 L 01/07/25 07:00 Resp 16 01/07/25 07:00 BP 145/83 01/07/25 07:00 Pulse Ox 97 01/07/25 07:00 FiO2 Intake & Output 01/06/25 01/07/25 01/07/25 18:59 06:59 18:59 Intake Total 360 Balance 360 Intake: Oral 360 Other: Voiding Method Toilet Toilet # Voids 1 2 1 - Exam PHYSICAL EXAM: VITAL SIGNS: [Reviewed] GENERAL: Pleasant, sitting up in chair, alert and oriented x 3, no acute distress HEENT: Normocephalic, atraumatic, pupils equal and reactive, positive scleral icterus NECK: Supple, no JVD. No thyroid enlargement. No LNs CARDIOVASCULAR: S1, S2 regular. No murmur RESPIRATION: Unlabored, equal air entry, clear to auscultation. ABDOMEN: Soft, obese, minimal right upper quadrant tenderness. No guarding. no masses palpable. Positive bowel sounds. LEGS: No edema. no swelling NERVOUS SYSTEM: Cranial N 2-12 grossly normal.No focal deficits. Strength and sensation grossly intact. Skin: Warm and dry, jaundiced - Labs CBC & Chem 7: 01/07/25 05:46 01/07/25 05:46 Labs: Abnormal Lab Results - Last 24 Hours (Table) 01/07/25 01/07/25 Range/Units 05:46 05:46 RDW 16.8 H (11.5-14.5) % MPV 12.5 H (9.5-12.2) fL Chloride 110 H (98-107) mmol/L Carbon Dioxide 21 L (22-30) mmol/L Total Bilirubin 7.3 H (0.2-1.3) mg/dL AST 303 H (14-36) U/L ALT 231 H (4-34) U/L Alkaline Phosphatase 1124 H (38-126) U/L Total Protein 5.8 L (6.3-8.2) g/dL Assessment and Plan Assessment: Chest pain, negative tropes, ACS has been ruled out, evaluated by cardiology. Hyperbilirubinemia, transaminitis with elevated alk phosphatase. CT reporting gallstones; cholecystitis, suspect choledocholithiasis, general surgery following History of gastric sleeve Chronic anemia secondary to the above Hypertension Hyperlipidemia Morbid obesity, BMI 47 Plan: Continue with current medication regimen ,monitoring and symptomatic treatment. Maintained on IV fluid hydration, Zosyn. no GI onsite this week, no transfer at this time/continue monitoring recommended per general surgery with laparoscopic cholecystectomy pending improvement in T. bili/LFTs .repeat CMP in AM. The impression and plan of care has been dictated as directed. : I performed a history and examination of this patient, discussed the same with the dictator. I agree with the dictator's note ,documented as a scribe. Any additional findings or plans will be noted.
--- NOTE | 2025-01-07 14:27 | P.PN ---
Subjective Progress Note Date: 01/07/25 HISTORY OF PRESENTING ILLNESS: Known to Dr. Breaux Past medical history of gastric sleeve surgery in 2014, obesity 64-year-old presented to the hospital because of right upper quadrant pain, radiating to back along with symptoms of GERD and worsening of pain symptoms after eating food. Cardiology was consulted for chest pain evaluation. Over last 1 to 2 days she has been experiencing right upper quadrant pain which she attributes to her twisted rib which is radiating to her back. She also reports that her GERD symptoms are more worse especially after eating food lately. She also feels that the back pain does get worse slightly after eating food. On admission her tropes were negative however her AST and ALT were mildly elevated however she denies any history of smoking alcohol or drug use marijuana use. She has also had elevated ALP and elevated total bili. She reports that since 2021 she has lost multiple family members and she has been in emotional distress and has been eating more. She has gained back 70 pounds of weight. ........................................................... ................................................................................ ... Pertient Vitals: 174/76, heart rate 66 bpm Pertient Labs: Hb 13.8, BUN 22, creatinine 0.9, AST 265, ALT 199, ALP 1313, troponin negative, LDL 152 EKG: Sinus rhythm ................................................... ................................................................................ ........... 01/07/2025 Patient seen and examined. Patient denies chest pain at this time, no chest pressure. Echocardiogram reveals EF 55%, mild concentric LVH. A1c 5.2, TSH 1.96, proBNP 169 Patient is followed by general surgery with plan for laparoscopic cholecystectomy when LFTs and total bilirubin have shown improvement. Patient is maintained on IV antibiotics. PHYSICAL EXAMINATION: Neck: Brisk carotid upstroke, no jugular venous distention. Lungs: Clear to auscultation. Heart: Regular rate and rhythm, S1-S2, , no murmur or rub. Abdomen: Soft , positive bowel sounds. Mild tenderness in the right upper qu adrant noticed Extremities: No edema, intact distal pulses. Neuro: Alert, oritented, no focal deficits. Detailed neuro exam was not performed. ........................................................ ................................................................................ ...... ASSESSMENT: # Atypical chest pain, ACS has been ruled out # Transaminitis with elevated ALP and bilirubin suggestive of obstructive hepatopathy # Morbid obesity # Essential hypertension # Dyslipidemia # Prior history of gastric sleeve surgery with resulting anemia from malabsorption syndrome. PLAN: At home she is on Lipitor 10 mg. Will hold it for now because of transaminitis and resume it once it resolves because of elevated LDL Continue losartan 25 mg daily for elevated blood pressure Patient is at intermediate risk for cardiovascular complications for an intermediate risk procedure. No absolute contraindications. Patient is cleared to move forward with planned surgical intervention Cardiology will sign off this case and follow on an as-needed basis. Please reconsult for any new concerns. Patient may follow-up in the office with Dr. Breaux 3 weeks. Discontinue telemetry Nurse practitioner note has been reviewed, I agree with documented findings and plan of care. Patient was seen and examined. Objective - Vital Signs Vital signs: Vital Signs Temp 98 F 01/07/25 00:14 Pulse 61 01/07/25 00:14 Resp 17 01/07/25 00:14 BP 124/66 01/07/25 00:14 Pulse Ox 97 01/07/25 00:14 FiO2 Intake & Output 01/06/25 01/07/25 01/07/25 18:59 06:59 18:59 Other: Voiding Method Toilet # Voids 1 2 - Labs CBC & Chem 7: 01/07/25 05:46 01/07/25 05:46 Labs: Abnormal Lab Results - Last 24 Hours (Table) 01/06/25 01/06/25 01/07/25 Range/Units 09:07 09:07 05:46 RDW 16.8 H 16.8 H (11.5-14.5) % MPV 12.8 H 12.5 H (9.5-12.2) fL Chloride (98-107) mmol/L Carbon Dioxide (22-30) mmol/L Glucose 107 H (74-99) mg/dL Total Bilirubin 6.2 H (0.2-1.3) mg/dL AST 358 H (14-36) U/L ALT 239 H (4-34) U/L Alkaline Phosphatase 1257 H (38-126) U/L Total Protein 6.1 L (6.3-8.2) g/dL 01/07/25 Range/Units 05:46 RDW (11.5-14.5) % MPV (9.5-12.2) fL Chloride 110 H (98-107) mmol/L Carbon Dioxide 21 L (22-30) mmol/L Glucose (74-99) mg/dL Total Bilirubin 7.3 H (0.2-1.3) mg/dL AST 303 H (14-36) U/L ALT 231 H (4-34) U/L Alkaline Phosphatase 1124 H (38-126) U/L Total Protein 5.8 L (6.3-8.2) g/dL
[2025-01-07] MEDS: diphenhydrAMINE 25 MG CAP PO PRN (20:43)
[2025-01-08 05:25] LABS: HCT 38.9 % (37.2-46.3); HGB 12.4 g/dL (12.0-15.0); MCH 28.3 pg (27.0-32.0); MCHC 31.9 g/dL (32.0-37.0); MCV 88.8 fL (80.0-97.0); Platelet Count 155 10*3/uL (140-440); RBC 4.38 10*6/uL (4.10-5.20); RDW 17.1 % (11.5-14.5); WBC 4.89 10*3/uL (4.50-10.00)
[2025-01-08 05:44] LABS: ALT 219 U/L (4-34); African American GFR (CKD) 82 (>60 ml/min/1.73 sqM); Albumin 3.3 g/dL (3.5-5.0); Albumin/Globulin Ratio 1.3; Anion Gap 10 mmol/L; Blood Urea Nitrogen 11 mg/dL (7-17); Calcium 9.5 mg/dL (8.4-10.2); Carbon Dioxide 21 mmol/L (22-30); Chloride 110 mmol/L (98-107); Globulin 2.5 g/dL; Glucose 95 mg/dL (74-99); Non-African American GFR(CKD) 71 (>60 ml/min/1.73 sqM); Sodium 141 mmol/L (137-145); Total Protein 5.8 g/dL (6.3-8.2)
[2025-01-08 05:52] LABS: AST 282 U/L (14-36); Potassium 4.5 mmol/L (3.5-5.1)
[2025-01-08 05:53] LABS: Alkaline Phosphatase 1072 U/L (38-126)
--- NOTE | 2025-01-08 11:15 | P.PN ---
Subjective Progress Note Date: 01/08/25 SURGICAL PROGRESS NOTE CHIEF COMPLAINT: Chest pain HISTORY OF PRESENT ILLNESS: Patient denies any abdominal pain. Denies any nausea or vomiting. She is complaining of itching. Afebrile. WBC 4.89 Hgb 1 2.4 platelets 155 total bilirubin is down from 7.3-6.6 AST 303 down to 282 ALT 231-219 alk phos [id number] PHYSICAL EXAM: VITAL SIGNS: Reviewed. GENERAL: Well-developed in no acute distress. HEENT: Scleral icterus present ABDOMEN: Soft. Nondistended. Nontender NEUROLOGIC: Alert and oriented. Cranial nerves II through XII grossly intact. SKIN: Jaundiced ASSESSMENT: 1. Cholecystitis 2. Possible choledocholithiasis with elevated total bilirubin and LFTs. PLAN: -Patient tentatively scheduled for laparoscopic cholecystectomy tomorrow with Dr. Dawn depending on her LFT levels -N.p.o. after midnight -Full liquid diet today -Repeat CMP in a.m. -Continue antibiotics Physician Cyber Security Architect note has been reviewed by physician. Signing provider agrees with the documented findings, assessment, and plan of care. Objective - Vital Signs Vital signs: Vital Signs Temp 97.7 F 01/08/25 07:00 Pulse 58 L 01/08/25 07:00 Resp 15 01/08/25 07:00 BP 162/78 01/08/25 07:00 Pulse Ox 98 01/08/25 07:00 FiO2 Intake & Output 01/07/25 01/08/25 01/08/25 18:59 06:59 18:59 Intake Total 360 Balance 360 Intake: Oral 360 Other: Voiding Method Toilet Toilet # Voids 3 2 - Labs CBC & Chem 7: 01/08/25 04:37 01/08/25 04:37 Labs: Abnormal Lab Results - Last 24 Hours (Table) 01/08/25 01/08/25 Range/Units 04:37 04:37 MCHC 31.9 L (32.0-37.0) g/dL RDW 17.1 H (11.5-14.5) % MPV 12.8 H (9.5-12.2) fL Chloride 110 H (98-107) mmol/L Carbon Dioxide 21 L (22-30) mmol/L Total Bilirubin 6.6 H (0.2-1.3) mg/dL AST 282 H (14-36) U/L ALT 219 H (4-34) U/L Alkaline Phosphatase 1072 H (38-126) U/L Total Protein 5.8 L (6.3-8.2) g/dL Albumin 3.3 L (3.5-5.0) g/dL
--- NOTE | 2025-01-08 12:11 | P.PN ---
Subjective Progress Note Date: 01/08/25 01/06/25 This is a pleasant 64-year-old female, past medical history significant for sleeve gastrectomy-Dr. Dawn, anemia, asthma, hypertension, hypothyroidism, former nicotine dependence, depression, obesity and multiple other medical issues presented to the ER with complaints of right lower chest pain/right upper quadrant abdominal pain radiating through to the back accompanied by nausea, increased indigestion, accompanied by dark yellow urine over the last couple days worsened after eating. Troponins negative, EKG reported sinus rhythm. Elevated LFTs; T. bili 3.6, AST 265, ALT 199, alk phos 1313 with repeat levels pending. Lactic acid 1.3/ bicarb 17, BUN 22, creatinine 0.93. Afebrile, normal WBC. CT chest abdomen pelvis reported unremarkable liver ,layering increased densities within the lumen consistent with gallstones, pancreas unremarkable. no hydronephrosis or renal calculi, ureters are unremarkable left renal cystic lesion without definite enhancement. No evidence for aortic dissection, aneurysm or occlusion. 01/07/2025 maintained on IV fluid hydration, Zosyn. Echo reported normal LV function, EF 55% with no significant valvular dysfunction appreciated. T. bili increased to 7.3, AST decreased to 303, ALT decreased to 231, alk phos decreased to 1124. Bicarb 21 BUN 14, creatinine 0.9, urine less dark. Denies chest pain, palpitations or shortness of breath. Denies nausea, vomiting. Denies abdominal pain, reports minimal right upper quadrant "soreness". Afebrile, normal WBC. Hemoglobin 12.4, platelets 193. 01/08/2025 T. bili decreased to 6.6, LFTs continue trending down. Afebrile, normal WBC. Renal function stable. Endorses minimal right upper quadrant to mid epigastric 'soreness'denies abdominal pain. Denies nausea, vomiting. Ambulating, tolerating exertion well. Denies chest pain, palpitations or shortness of breath. Complains of generalized itching. Objective - Vital Signs Vital signs: Vital Signs Temp 97.7 F 01/08/25 07:00 Pulse 58 L 01/08/25 07:00 Resp 15 01/08/25 07:00 BP 162/78 01/08/25 07:00 Pulse Ox 98 01/08/25 07:00 FiO2 Intake & Output 01/07/25 01/08/25 01/08/25 18:59 06:59 18:59 Intake Total 360 Balance 360 Intake: Oral 360 Other: Voiding Method Toilet Toilet # Voids 3 2 - Exam PHYSICAL EXAM: VITAL SIGNS: [Reviewed] GENERAL: Pleasant, ambulating in room, alert and oriented x 3, no acute distress HEENT: Normocephalic, atraumatic, pupils equal and reactive, positive scleral icterus NECK: Supple, no JVD. CARDIOVASCULAR: S1, S2 regular. No murmur RESPIRATION: Unlabored, equal air entry, clear to auscultation. ABDOMEN: Soft, obese, minimal right upper quadrant tenderness. No guarding. no masses palpable. Positive bowel sounds. LEGS: No edema. no swelling NERVOUS SYSTEM: Cranial N 2-12 grossly normal.No focal deficits. Strength and sensation grossly intact. Skin: Warm and dry, jaundiced - Labs CBC & Chem 7: 01/08/25 04:37 01/08/25 04:37 Labs: Abnormal Lab Results - Last 24 Hours (Table) 01/08/25 01/08/25 Range/Units 04:37 04:37 MCHC 31.9 L (32.0-37.0) g/dL RDW 17.1 H (11.5-14.5) % MPV 12.8 H (9.5-12.2) fL Chloride 110 H (98-107) mmol/L Carbon Dioxide 21 L (22-30) mmol/L Total Bilirubin 6.6 H (0.2-1.3) mg/dL AST 282 H (14-36) U/L ALT 219 H (4-34) U/L Alkaline Phosphatase 1072 H (38-126) U/L Total Protein 5.8 L (6.3-8.2) g/dL Albumin 3.3 L (3.5-5.0) g/dL Assessment and Plan Assessment: Chest pain, negative tropes, ACS has been ruled out, cardiology following Hyperbilirubinemia, transaminitis with elevated alk phosphatase. CT reporting gallstones, suspect choledocholithiasis, general surgery following History of gastric sleeve Chronic anemia secondary to the above Hypertension Hyperlipidemia Morbid obesity, BMI 47 Plan: Continue with current medication regimen ,monitoring and symptomatic treatment. Maintain antibiotics. general surgery recommending laparoscopic cholecystectomy tomorrow pending T. bili/LFTs continue improving. The impression and plan of care has been dictated as directed. : I performed a history and examination of this patient, discussed the same with the dictator. I agree with the dictator's note ,documented as a scribe. Any additional findings or plans will be noted.
[2025-01-08] MEDS: MELATONIN 3 MG TABLET PO PRN (21:51)
[2025-01-09 05:19] LABS: Basophils # (A) 0.06 10*3/uL (0.00-0.10); Basophils % (A) 1.3 %; Eosinophils # (A) 0.18 10*3/uL (0.04-0.35); Eosinophils % (A) 3.9 %; HCT 37.5 % (37.2-46.3); HGB 11.9 g/dL (12.0-15.0); Lymphocytes # (A) 1.49 10*3/uL (0.90-5.00); Lymphocytes % (A) 32.0 %; MCH 28.3 pg (27.0-32.0); MCHC 31.7 g/dL (32.0-37.0); MCV 89.1 fL (80.0-97.0); Monocytes # (A) 0.45 10*3/uL (0.20-1.00); Monocytes % (A) 9.7 %; Neutrophils # (A) 2.45 10*3/uL (1.80-7.70); Neutrophils % (A) 52.7 %; Platelet Count 191 10*3/uL (140-440); RBC 4.21 10*6/uL (4.10-5.20); RDW 17.1 % (11.5-14.5); WBC 4.65 10*3/uL (4.50-10.00)
[2025-01-09 05:38] LABS: ALT 177 U/L (4-34); AST 191 U/L (14-36); African American GFR (CKD) 76 (>60 ml/min/1.73 sqM); Albumin 3.2 g/dL (3.5-5.0); Albumin/Globulin Ratio 1.5; Alkaline Phosphatase 1057 U/L (38-126); Anion Gap 10 mmol/L; Blood Urea Nitrogen 11 mg/dL (7-17); Calcium 9.6 mg/dL (8.4-10.2); Carbon Dioxide 22 mmol/L (22-30); Chloride 108 mmol/L (98-107); Globulin 2.2 g/dL; Glucose 96 mg/dL (74-99); Non-African American GFR(CKD) 66 (>60 ml/min/1.73 sqM); Potassium 4.0 mmol/L (3.5-5.1); Sodium 140 mmol/L (137-145); Total Protein 5.4 g/dL (6.3-8.2)
--- NOTE | 2025-01-09 10:39 | P.PN ---
Subjective Progress Note Date: 01/09/25 SURGICAL PROGRESS NOTE CHIEF COMPLAINT: Chest pain HISTORY OF PRESENT ILLNESS: Patient scheduled for laparoscopic cholecystectomy today. Patient denies any abdominal pain. Denies any nausea or vomiting. Afebrile. WBC 4.62 total bilirubin down from 6.6-4.2 AST 282 down to 191 ALT 219-177 alk phos 1072 down to 1057 PHYSICAL EXAM: VITAL SIGNS: Reviewed. GENERAL: Well-developed in no acute distress. HEENT: Scleral icterus present ABDOMEN: Soft. Nondistended. Nontender NEUROLOGIC: Alert and oriented. Cranial nerves II through XII grossly intact. SKIN: Jaundiced ASSESSMENT: 1. Cholecystitis 2. Possible choledocholithiasis. LFTs and total bilirubin are trending downwards. PLAN: -Patient scheduled for laparoscopic cholecystectomy today with Dr. Dawn -Patient was given the option to be transferred for ERCP prior to cholecystectomy due to there being no GI coverage this week. Patient has chosen to proceed with cholecystectomy first with the knowledge that she may require an ERCP after surgery. Physician Supervisor Vacuum Metalizing note has been reviewed by physician. Signing provider agrees with the documented findings, assessment, and plan of care. Objective - Vital Signs Vital signs: Vital Signs Temp 97.0 F L 01/09/25 10:19 Pulse 69 01/09/25 10:19 Resp 16 01/09/25 10:19 BP 143/72 01/09/25 10:19 Pulse Ox 97 01/09/25 10:19 FiO2 Intake & Output 01/08/25 01/09/25 01/09/25 18:59 06:59 18:59 Other: Voiding Method Toilet # Voids 4 1 - Labs CBC & Chem 7: 01/09/25 04:48 01/09/25 04:48 Labs: Abnormal Lab Results - Last 24 Hours (Table) 01/09/25 01/09/25 Range/Units 04:48 04:48 Hgb 11.9 L (12.0-15.0) g/dL MCHC 31.7 L (32.0-37.0) g/dL RDW 17.1 H (11.5-14.5) % MPV 12.5 H (9.5-12.2) fL Chloride 108 H (98-107) mmol/L Total Bilirubin 4.2 H (0.2-1.3) mg/dL AST 191 H (14-36) U/L ALT 177 H (4-34) U/L Alkaline Phosphatase 1057 H (38-126) U/L Total Protein 5.4 L (6.3-8.2) g/dL Albumin 3.2 L (3.5-5.0) g/dL
[2025-01-09] MEDS: LIDOCAINE 1%-EPI 1:100,000 20 ML VIAL SQ ONE ×2 (10:44→11:36)
[2025-01-09] MEDS: FAMOTIDINE 20 MG/2 ML VIAL IV STA (11:05)
[2025-01-09] MEDS: DEXAMETHASONE SOD PHOSPHATE 4 MG/ML 1 ML VIAL IVP STA (11:06)
[2025-01-09] MEDS ORDERED: LIDOCAINE 1% INJ 10MG/ML (20 ML MDV) ONE (11:07)
[2025-01-09] MEDS ORDERED: MIDAZOLAM 2 MG/2 ML VIAL ONE (11:07)
[2025-01-09] MEDS ORDERED: fentaNYL (PF) 50 MCG/ML 2 ML AMP ONE (11:07)
[2025-01-09] MEDS ORDERED: ROCURONIUM 10 MG/ML (5 ML VIAL) IV ONE (11:07)
[2025-01-09] MEDS ORDERED: SUCCINYLCHOLINE CHLORIDE 200 MG/10 ML VIAL IV ONE (11:07)
[2025-01-09] MEDS ORDERED: SUGAMMADEX SODIUM 100 MG/ML SYR IV ONE (11:07)
[2025-01-09] MEDS ORDERED: PROPOFOL 10 MG/ML 20 ML VIAL IV ONE (11:07)
[2025-01-09] MEDS ORDERED: NEOSTIGMINE 1 MG/ML 10 ML VIAL ONE (11:07)
[2025-01-09] MEDS: ONDANSETRON 4 MG/2 ML VIAL IVP STA ×2 (11:07→16:01)
[2025-01-09] MEDS ORDERED: GLYCOPYRROLATE 0.2 MG/ML 2 ML VIAL ONE (11:07)
[2025-01-09] MEDS: IV FLUID CONTINUATION 1,000 ML IV ONE (11:10)
[2025-01-09] MEDS: LACTATED RINGERS 1,000 ML IV ONE (11:45)
--- NOTE | 2025-01-09 12:07 | P.PN ---
Progress Note - Text Progress Note Date: 01/09/25 I had a lengthy discussion with the patient in the preoperative holding area. We went over the different treatment options again. The patient understands that she will most likely need a postoperative ERCP. She says she does not wish to be transferred for this. She wants to wait for potential ERCP next week. I did explain to her that we do not have the equipment for laparoscopic, and a bile duct exploration at this facility. The patient is agreeable to laparoscopic cholecystectomy today with the potential for postoperative ERCP. All her questions were answered i in the preoperative holding area.
--- NOTE | 2025-01-09 12:08 | P.OP ---
Date of Procedure: 01/09/25 Preoperative Diagnosis: Cholecystitis Choledocholithiasis Postoperative Diagnosis: Same Procedure(s) Performed: Laparoscopic cholecystectomy Anesthesia: CHACE Surgeon: Gerson Dawn Estimated Blood Loss (ml): 5 Pathology: other (Gallbladder) Condition: stable Disposition: PACU Description of Procedure: The patient was placed on the operating table. The patient received a general endotracheal tube anesthesia. The patients abdomen was prepped and draped in the usual sterile fashion. Through an infraumbilical stab incision, the fascia of the anterior abdominal wall was grasped with a pair of Kochers and then the Veress needle was placed in the peritoneal cavity. Position of the Veress needle was confirmed with positive drop test. The abdomen was then insufflated. After adequate insufflation, the 10 mm trocar was placed in the peritoneal cavity. Following this the laparoscope was placed in the peritoneal cavity. The patient was placed in the head-up, right side up position and then a 5 mm trocar was placed in the right lateral and right subcostal pos ition under direct visualization. A 8 mm trocar was placed in the epigastric position. The gallbladder was grasped in the fundus and infundibulum. Traction on the gallbladder was placed in the lateral and the cephalad positions. The triangle of Calot was visualized.. The cystic duct was bluntly dissected until the union of the cystic duct and common bile duct was seen. A critical view of safety was achieved. The cystic duct was then divided and sealed with the Harmonic scissors. A PDS Endoloop was then placed throughout the cystic duct stump. The cystic artery divided and sealed with the Harmonic scissors. The gallbladder was then removed from the liver bed using Harmonic scissors. The gallbladder was then extracted through the epigastric port site. Operative field was checked for any bleeding spots and Harmonic scissors was used to coagulate the liver bed. The abdomen was irrigated. The trocars were removed. The skin was closed using interrupted 3-0 Vicryl suture. Dermabond dressing were applied. The patient tolerated the procedure well.
[2025-01-09] MEDS: HYDROmorphone 1 MG/ML 1 ML SYRINGE IVP PRN (14:22)
[2025-01-09] MEDS: hydrALAZINE HCL 20 MG/ML 1 ML VIAL IVP STA (14:22)
--- NOTE | 2025-01-09 15:48 | P.PN ---
Subjective Progress Note Date: 01/09/25 Subjective: 01/07/2025 maintained on IV fluid hydration, Zosyn. Echo reported normal LV function, EF 55% with no significant valvular dysfunction appreciated. T. bili increased to 7.3, AST decreased to 303, ALT decreased to 231, alk phos decreased to 1124. Bicarb 21 BUN 14, creatinine 0.9, urine less dark. Denies chest pain, palpitations or shortness of breath. Denies nausea, vomiting. Denies abdominal pain, reports minimal right upper quadrant "soreness". Afebrile, normal WBC. Hemoglobin 12.4, platelets 193. 01/08/2025 T. bili decreased to 6.6, LFTs continue trending down. Afebrile, normal WBC. Renal function stable. Endorses minimal right upper quadrant to mid epigastric 'soreness'denies abdominal pain. Denies nausea, vomiting. Ambulating, tolerating exertion well. Denies chest pain, palpitations or shortness of breath. Complains of generalized itching. 01/05: Patient seen at bedside. No acute overnight events. Denied shortness of breath, chest pain, nausea and vomiting. Reports decrease in abdominal pain. Awaiting cholecystectomy today. Pertinent positives and negatives discussed above, a complete review of systems was preformed and all the other sytems were negative. Vitals Reviewed. PHYSICAL EXAM: GENERAL: Pleasant, ambulating in room, alert and oriented x 3, no acute distress HEENT: Normocephalic, atraumatic, pupils equal and reactive, positive scleral ic terus CARDIOVASCULAR: S1, S2 regular. No murmur RESPIRATION: Unlabored, equal air entry, clear to auscultation. ABDOMEN: Soft, obese, minimal right upper quadrant tenderness. No guarding. no masses palpable. Positive bowel sounds. LEGS: No edema. no swelling NERVOUS SYSTEM: No focal neurological deficits Skin: Warm and dry Data Reviewed Today: 01/09/2025 Patient Labs: WBC 4.65, hemoglobin 9, sodium 143, potassium 4.8, total bilirubin 191, AST 177, ALT 1057 Imaging: No new images. Assesment and Plan: #Chest pain, negative tropes, ACS has been ruled out, cardiology following #Hyperbilirubinemia, transaminitis with elevated alk phosphatase. CT reporting gallstones, suspect choledocholithiasis, general surgery following #History of gastric sleeve #Chronic anemia secondary to the above #Hypertension #Hyperlipidemia Morbid obesity, BMI 47 Continue with current medication regimen ,monitoring and symptomatic treatment. Maintain antibiotics. Cholecystectomy today. Objective - Vital Signs Vital signs: Vital Signs Temp 97.0 F L 01/09/25 10:19 Pulse 69 01/09/25 10:19 Resp 16 01/09/25 10:19 BP 143/72 01/09/25 10:19 Pulse Ox 97 01/09/25 10:19 FiO2 Intake & Output 01/08/25 01/09/25 01/09/25 18:59 06:59 18:59 Intake Total 500 Output Total 5 Balance 495 Intake: IV 500 Output: Estimated Blood Loss 5 Other: Voiding Method Toilet # Voids 4 1 - Labs CBC & Chem 7: 01/13/25 04:22 01/15/25 08:51 Labs: Abnormal Lab Results - Last 24 Hours (Table) 01/09/25 01/09/25 Range/Units 04:48 04:48 Hgb 11.9 L (12.0-15.0) g/dL MCHC 31.7 L (32.0-37.0) g/dL RDW 17.1 H (11.5-14.5) % MPV 12.5 H (9.5-12.2) fL Chloride 108 H (98-107) mmol/L Total Bilirubin 4.2 H (0.2-1.3) mg/dL AST 191 H (14-36) U/L ALT 177 H (4-34) U/L Alkaline Phosphatase 1057 H (38-126) U/L Total Protein 5.4 L (6.3-8.2) g/dL Albumin 3.2 L (3.5-5.0) g/dL Assessment and Plan Assessment: Attestation Attestation/ Truck Washer Note: Attestation to Progress Note, Participation (I saw and evaluated the patient with the Resident, and I reviewed and discussed the patient with the Resident and agree with the Resident's findings and plans as documented above., management reviewed and discussed), I agree with findings & plan, Provider Signature (ELSA CORDERO, STORM Ibarra
[2025-01-10 06:24] LABS: Basophils # (A) 0.04 10*3/uL (0.00-0.10); Basophils % (A) 0.3 %; Eosinophils # (A) 0.00 10*3/uL (0.04-0.35); Eosinophils % (A) 0.0 %; HCT 39.4 % (37.2-46.3); HGB 12.3 g/dL (12.0-15.0); Lymphocytes # (A) 1.49 10*3/uL (0.90-5.00); Lymphocytes % (A) 12.6 %; MCH 27.8 pg (27.0-32.0); MCHC 31.2 g/dL (32.0-37.0); MCV 88.9 fL (80.0-97.0); Monocytes # (A) 0.73 10*3/uL (0.20-1.00); Monocytes % (A) 6.1 %; Neutrophils # (A) 9.54 10*3/uL (1.80-7.70); Neutrophils % (A) 80.4 %; Platelet Count 223 10*3/uL (140-440); RBC 4.43 10*6/uL (4.10-5.20); RDW 17.0 % (11.5-14.5); WBC 11.87 10*3/uL (4.50-10.00)
[2025-01-10 06:39] LABS: ALT 165 U/L (4-34); AST 170 U/L (14-36); African American GFR (CKD) 82 (>60 ml/min/1.73 sqM); Albumin 3.5 g/dL (3.5-5.0); Albumin/Globulin Ratio 1.5; Alkaline Phosphatase 1045 U/L (38-126); Anion Gap 5 mmol/L; Blood Urea Nitrogen 13 mg/dL (7-17); Calcium 9.1 mg/dL (8.4-10.2); Carbon Dioxide 25 mmol/L (22-30); Chloride 107 mmol/L (98-107); Globulin 2.3 g/dL; Glucose 127 mg/dL (74-99); Non-African American GFR(CKD) 71 (>60 ml/min/1.73 sqM); Potassium 3.7 mmol/L (3.5-5.1); Sodium 137 mmol/L (137-145); Total Protein 5.8 g/dL (6.3-8.2)
[2025-01-10] MEDS: ENOXAPARIN 40 MG/0.4 ML SYRINGE SQ SCH (08:11)
[2025-01-10] MEDS ORDERED: ONDANSETRON 4 MG/2 ML VIAL IVP PRN (09:09)
--- NOTE | 2025-01-10 13:24 | P.PN ---
Subjective Progress Note Date: 01/10/25 Patient has complaints of some right upper quadrant pain. It is mainly at the incision sites. She has had bowel movements. She actually feels a little better than yesterday. On exam vital signs appear stable. Patient appears to be less jaundiced. Abdomen is soft incision sites are clean are intact. Status post laparoscopic cholecystectomy for chronic cholecystitis and choledocholithiasis. Patient will hopefully undergo ERCP on Monday when the GI service is back Objective - Vital Signs Vital signs: Vital Signs Temp 97.8 F 01/10/25 07:00 Pulse 73 01/10/25 07:00 Resp 18 01/10/25 07:00 BP 139/76 01/10/25 07:00 Pulse Ox 94 L 01/10/25 07:00 FiO2 Intake & Output 01/09/25 01/10/25 01/10/25 18:59 06:59 18:59 Intake Total 600 Output Total 5 Balance 595 Intake: IV 600 Output: Estimated Blood Loss 5 Other: Voiding Method Toilet # Voids 2 2 - Labs CBC & Chem 7: 01/10/25 06:04 01/10/25 06:04 Labs: Abnormal Lab Results - Last 24 Hours (Table) 01/10/25 01/10/25 Range/Units 06:04 06:04 WBC 11.87 H (4.50-10.00) 10*3/uL MCHC 31.2 L (32.0-37.0) g/dL RDW 17.0 H (11.5-14.5) % MPV 12.3 H (9.5-12.2) fL Immature Gran # 0.07 H (0.00-0.04) 10*3/uL Neutrophils # 9.54 H (1.80-7.70) 10*3/uL Eosinophils # 0.00 L (0.04-0.35) 10*3/uL Glucose 127 H (74-99) mg/dL Total Bilirubin 3.7 H (0.2-1.3) mg/dL AST 170 H (14-36) U/L ALT 165 H (4-34) U/L Alkaline Phosphatase 1045 H (38-126) U/L Total Protein 5.8 L (6.3-8.2) g/dL
[2025-01-10 14:52] VITALS: BMI 47.4
--- NOTE | 2025-01-10 14:59 | XR ---
EXAMINATION TYPE: XR abdomen 2V DATE OF EXAM: 01/10/2025 2:46 PM COMPARISON: None CLINICAL INDICATION: Female, 64 years old with history of no bowel movements, reduced bowel sounds , abdo pn; [facility] TECHNIQUE: Two views of the abdomen were obtained. FINDINGS: Lung bases are clear. No evidence for free intraperitoneal air. No dilated small bowel or differential air-fluid levels. Cholecystectomy clips. Scattered mild to moderate stool. Air and stool extends distally to the rectum. Small pelvic phleboliths. Staple line likely related to prior sleeve gastrectomy. Calcifications left upper quadrant probably calcified granulomas. IMPRESSION: No evidence for free air or bowel obstruction. Scattered mild to moderate stool. [facility], , 01/10/2025 2:57 PM
--- NOTE | 2025-01-10 15:00 | P.PN ---
Subjective Progress Note Date: 01/10/25 Subjective: 01/07/2025 maintained on IV fluid hydration, Zosyn. Echo reported normal LV function, EF 55% with no significant valvular dysfunction appreciated. T. bili increased to 7.3, AST decreased to 303, ALT decreased to 231, alk phos decreased to 1124. Bicarb 21 BUN 14, creatinine 0.9, urine less dark. Denies chest pain, palpitations or shortness of breath. Denies nausea, vomiting. Denies abdominal pain, reports minimal right upper quadrant "soreness". Afebrile, normal WBC. Hemoglobin 12.4, platelets 193. 01/08/2025 T. bili decreased to 6.6, LFTs continue trending down. Afebrile, normal WBC. Renal function stable. Endorses minimal right upper quadrant to mid epigastric 'soreness'denies abdominal pain. Denies nausea, vomiting. Ambulating, tolerating exertion well. Denies chest pain, palpitations or shortness of breath. Complains of generalized itching. 01/09: Patient seen at bedside. No acute overnight events. Denied shortness of breath, chest pain, nausea and vomiting. Reports decrease in abdominal pain. Awaiting cholecystectomy today. 01/10: Patient seen at bedside. Status post laparoscopic cholecystectomy day 1. Reports persistent nausea. Denies shortness of breath, fevers, chest pain, and vomiting. She was able to mobilize to the bathroom independently. Has voided appropriately. Have not had a bowel movement since last Monday. Reports not being able to pass gas. Patient reports has not eaten since last Monday. Pertinent positives and negatives discussed above, a complete review of systems was preformed and all the other sytems were negative. Vitals Reviewed. PHYSICAL EXAM: GENERAL: Pleasant, ambulating in room, alert and oriented x 3, no acute distress HEENT: Normocephalic, atraumatic, pupils equal and reactive, positive scleral icterus CARDIOVASCULAR: S1, S2 regular. No murmur RESPIRATION: Unlabored, equal air entry, clear to auscultation. ABDOMEN: Soft, obese, minimal right upper quadrant tenderness. No guarding. no masses palpable. Positive bowel sounds. LEGS: No edema. no swelling NERVOUS SYSTEM: No focal neurological deficits Skin: Warm and dry Data Reviewed Today: 01/10/2025 Patient Labs: WBC 4.65, hemoglobin 9, sodium 143, potassium 4.8, total bilirubin 191, AST 177, ALT 1057 Imaging: No new images. Assesment and Plan: #Chest pain, negative tropes, ACS has been ruled out, cardiology following #Hyperbilirubinemia, transaminitis with elevated alk phosphatase. CT reporting gallstones, suspect choledocholithiasis, general surgery following #History of gastric sleeve #Chronic anemia secondary to the above #Hypertension #Hyperlipidemia Morbid obesity, BMI 47 ERCP on Monday Continue with current medication regimen ,monitoring and symptomatic treatment. Maintain antibiotics. Start MiraLAX Objective - Vital Signs Vital signs: Vital Signs Temp 97.8 F 01/10/25 07:00 Pulse 73 01/10/25 07:00 Resp 18 01/10/25 07:00 BP 139/76 01/10/25 07:00 Pulse Ox 94 L 01/10/25 07:00 FiO2 Intake & Output 01/09/25 01/10/25 01/10/25 18:59 06:59 18:59 Intake Total 600 Output Total 5 Balance 595 Intake: IV 600 Output: Estimated Blood Loss 5 Other: Voiding Method Toilet # Voids 2 2 - Labs CBC & Chem 7: 01/13/25 04:22 01/15/25 08:51 Labs: Abnormal Lab Results - Last 24 Hours (Table) 01/10/25 01/10/25 Range/Units 06:04 06:04 WBC 11.87 H (4.50-10.00) 10*3/uL MCHC 31.2 L (32.0-37.0) g/dL RDW 17.0 H (11.5-14.5) % MPV 12.3 H (9.5-12.2) fL Immature Gran # 0.07 H (0.00-0.04) 10*3/uL Neutrophils # 9.54 H (1.80-7.70) 10*3/uL Eosinophils # 0.00 L (0.04-0.35) 10*3/uL Glucose 127 H (74-99) mg/dL Total Bilirubin 3.7 H (0.2-1.3) mg/dL AST 170 H (14-36) U/L ALT 165 H (4-34) U/L Alkaline Phosphatase 1045 H (38-126) U/L Total Protein 5.8 L (6.3-8.2) g/dL Assessment and Plan Assessment: 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
[2025-01-11 06:48] LABS: HCT 38.4 % (37.2-46.3); HGB 12.1 g/dL (12.0-15.0); MCH 28.5 pg (27.0-32.0); MCHC 31.5 g/dL (32.0-37.0); MCV 90.4 fL (80.0-97.0); RBC 4.25 10*6/uL (4.10-5.20); RDW 17.0 % (11.5-14.5); WBC 8.81 10*3/uL (4.50-10.00)
[2025-01-11 06:49] LABS: Basophils # (A) 0.04 10*3/uL (0.00-0.10); Basophils % (A) 0.5 %; Eosinophils # (A) 0.08 10*3/uL (0.04-0.35); Eosinophils % (A) 0.9 %; Lymphocytes # (A) 1.64 10*3/uL (0.90-5.00); Lymphocytes % (A) 18.6 %; Monocytes # (A) 0.67 10*3/uL (0.20-1.00); Monocytes % (A) 7.6 %; Neutrophils # (A) 6.32 10*3/uL (1.80-7.70); Neutrophils % (A) 71.7 %; Platelet Count 219 10*3/uL (140-440)
[2025-01-11 07:03] LABS: ALT 145 U/L (4-34); AST 121 U/L (14-36); African American GFR (CKD) 79 (>60 ml/min/1.73 sqM); Albumin 3.5 g/dL (3.5-5.0); Albumin/Globulin Ratio 1.5; Alkaline Phosphatase 980 U/L (38-126); Anion Gap 9 mmol/L; Blood Urea Nitrogen 14 mg/dL (7-17); Calcium 9.4 mg/dL (8.4-10.2); Carbon Dioxide 23 mmol/L (22-30); Chloride 108 mmol/L (98-107); Globulin 2.3 g/dL; Glucose 102 mg/dL (74-99); Non-African American GFR(CKD) 68 (>60 ml/min/1.73 sqM); Potassium 3.9 mmol/L (3.5-5.1); Sodium 140 mmol/L (137-145); Total Protein 5.8 g/dL (6.3-8.2)
--- NOTE | 2025-01-11 11:44 | P.PN ---
Subjective Progress Note Date: 01/11/25 Patient feels slightly better. Her liver enzymes have improved. On exam vital signs appear stable. Abdomen soft. History of choledocholithiasis. Patient will consult with GI services on Monday for possible ERCP Objective - Vital Signs Vital signs: Vital Signs Temp 97.9 F 01/11/25 07:00 Pulse 71 01/11/25 07:00 Resp 16 01/11/25 07:00 BP 153/84 01/11/25 07:00 Pulse Ox 100 01/11/25 07:00 FiO2 Intake & Output 01/10/25 01/11/25 01/11/25 18:59 06:59 18:59 Weight 154.221 kg Other: # Voids 3 3 - Labs CBC & Chem 7: 01/11/25 05:53 01/11/25 05:53 Labs: Abnormal Lab Results - Last 24 Hours (Table) 01/11/25 01/11/25 Range/Units 05:53 05:53 MCHC 31.5 L (32.0-37.0) g/dL RDW 17.0 H (11.5-14.5) % MPV 12.8 H (9.5-12.2) fL Immature Gran # 0.06 H (0.00-0.04) 10*3/uL Chloride 108 H (98-107) mmol/L Glucose 102 H (74-99) mg/dL Total Bilirubin 3.5 H (0.2-1.3) mg/dL AST 121 H (14-36) U/L ALT 145 H (4-34) U/L Alkaline Phosphatase 980 H (38-126) U/L Total Protein 5.8 L (6.3-8.2) g/dL
--- NOTE | 2025-01-11 12:39 | P.PN ---
Subjective Progress Note Date: 01/11/25 Subjective: 01/07/2025 maintained on IV fluid hydration, Zosyn. Echo reported normal LV function, EF 55% with no significant valvular dysfunction appreciated. T. bili increased to 7.3, AST decreased to 303, ALT decreased to 231, alk phos decreased to 1124. Bicarb 21 BUN 14, creatinine 0.9, urine less dark. Denies chest pain, palpitations or shortness of breath. Denies nausea, vomiting. Denies abdominal pain, reports minimal right upper quadrant "soreness". Afebrile, normal WBC. Hemoglobin 12.4, platelets 193. 01/08/2025 T. bili decreased to 6.6, LFTs continue trending down. Afebrile, normal WBC. Renal function stable. Endorses minimal right upper quadrant to mid epigastric 'soreness'denies abdominal pain. Denies nausea, vomiting. Ambulating, tolerating exertion well. Denies chest pain, palpitations or shortness of breath. Complains of generalized itching. 01/09: Patient seen at bedside. No acute overnight events. Denied shortness of breath, chest pain, nausea and vomiting. Reports decrease in abdominal pain. Awaiting cholecystectomy today. 01/10: Patient seen at bedside. Status post laparoscopic cholecystectomy day 1. Reports persistent nausea. Denies shortness of breath, fevers, chest pain, and vomiting. She was able to mobilize to the bathroom independently. Has voided appropriately. Have not had a bowel movement since last Monday. Reports not being able to pass gas. Patient reports has not eaten since last Monday. 01/11: Patient seen at bedside. Reports being able to pass gas, however still has not had a bowel movement. Denies nausea, vomiting, shortness of breath, fevers and chest pains. Pertinent positives and negatives discussed above, a complete review of systems was preformed and all the other sytems were negative. Vitals Reviewed. PHYSICAL EXAM: GENERAL: Pleasant, ambulating in room, alert and oriented x 3, no acute distress HEENT: Normocephalic, atraumatic, pupils equal and reactive, positive scleral icterus CARDIOVASCULAR: S1, S2 regular. No murmur RESPIRATION: Unlabored, equal air entry, clear to auscultation. ABDOMEN: Soft, obese, minimal right upper quadrant tenderness. No guarding. no masses palpable. Positive bowel sounds. LEGS: No edema. no swelling NERVOUS SYSTEM: No focal neurological deficits Skin: Warm and dry Data Reviewed Today: 01/11/2025 Patient Labs: WBC 8.81, hemoglobin 12.1, sodium 140, potassium 3.9, total bilirubin 3.5, AST 121, ALT 145, ALP 980 . Imaging: Abdominal x-ray indicates no evidence for free air or bowel obstruction. Scattered mild to moderate stool. Assesment and Plan: #Chest pain, negative tropes, ACS has been ruled out, cardiology following #Hyperbilirubinemia, transaminitis with elevated alk phosphatase. CT reporting gallstones, suspect choledocholithiasis, general surgery following #History of gastric sleeve #Chronic anemia secondary to the above #Hypertension #Mood disorder #Hyperlipidemia - ERCP on Monday - Continue with current medication regimen ,monitoring and symptomatic treatment. - Maintain antibiotics. -Continue on MiraLAX DVT prophylaxis: Lovenox GI prophylaxis: Protonix Objective - Vital Signs Vital signs: Vital Signs Temp 97.9 F 01/11/25 07:00 Pulse 71 01/11/25 07:00 Resp 16 01/11/25 07:00 BP 153/84 01/11/25 07:00 Pulse Ox 100 01/11/25 07:00 FiO2 Intake & Output 01/10/25 01/11/25 01/11/25 18:59 06:59 18:59 Weight 154.221 kg Other: # Voids 3 3 - Labs CBC & Chem 7: 01/13/25 04:22 01/15/25 08:51 Labs: Abnormal Lab Results - Last 24 Hours (Table) 01/11/25 01/11/25 Range/Units 05:53 05:53 MCHC 31.5 L (32.0-37.0) g/dL RDW 17.0 H (11.5-14.5) % MPV 12.8 H (9.5-12.2) fL Immature Gran # 0.06 H (0.00-0.04) 10*3/uL Chloride 108 H (98-107) mmol/L Glucose 102 H (74-99) mg/dL Total Bilirubin 3.5 H (0.2-1.3) mg/dL AST 121 H (14-36) U/L ALT 145 H (4-34) U/L Alkaline Phosphatase 980 H (38-126) U/L Total Protein 5.8 L (6.3-8.2) g/dL Assessment and Plan Assessment: 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
[2025-01-12 05:48] LABS: Basophils # (A) 0.04 10*3/uL (0.00-0.10); Basophils % (A) 0.6 %; Eosinophils # (A) 0.16 10*3/uL (0.04-0.35); Eosinophils % (A) 2.6 %; HCT 34.9 % (37.2-46.3); HGB 11.2 g/dL (12.0-15.0); Lymphocytes # (A) 1.58 10*3/uL (0.90-5.00); Lymphocytes % (A) 25.6 %; MCH 28.8 pg (27.0-32.0); MCHC 32.1 g/dL (32.0-37.0); MCV 89.7 fL (80.0-97.0); Monocytes # (A) 0.63 10*3/uL (0.20-1.00); Monocytes % (A) 10.2 %; Neutrophils # (A) 3.68 10*3/uL (1.80-7.70); Neutrophils % (A) 59.7 %; Platelet Count 185 10*3/uL (140-440); RBC 3.89 10*6/uL (4.10-5.20); RDW 16.3 % (11.5-14.5); WBC 6.17 10*3/uL (4.50-10.00)
[2025-01-12 06:06] LABS: ALT 107 U/L (4-34); AST 84 U/L (14-36); African American GFR (CKD) 84 (>60 ml/min/1.73 sqM); Albumin 2.8 g/dL (3.5-5.0); Albumin/Globulin Ratio 1.3; Alkaline Phosphatase 702 U/L (38-126); Anion Gap 5 mmol/L; Blood Urea Nitrogen 13 mg/dL (7-17); Calcium 9.1 mg/dL (8.4-10.2); Carbon Dioxide 26 mmol/L (22-30); Chloride 110 mmol/L (98-107); Globulin 2.2 g/dL; Glucose 96 mg/dL (74-99); Non-African American GFR(CKD) 73 (>60 ml/min/1.73 sqM); Potassium 3.8 mmol/L (3.5-5.1); Sodium 141 mmol/L (137-145); Total Protein 5.0 g/dL (6.3-8.2)
[2025-01-12] MEDS: PANTOPRAZOLE 40 MG TABLET PO SCH (06:49)
--- NOTE | 2025-01-12 13:13 | P.PN ---
Subjective Progress Note Date: 01/12/25 Patient feels better. She states her urine has returned to normal color. Biochemically her liver function tests have improved On exam vital signs are stable. Abdomen soft. Cholecystitis with history of choledocholithiasis. Patient will be evaluated by GI services tomorrow for possible ERCP. Objective - Vital Signs Vital signs: Vital Signs Temp 97.9 F 01/12/25 07:00 Pulse 60 01/12/25 07:00 Resp 16 01/12/25 07:00 BP 190/77 01/12/25 07:00 Pulse Ox 97 01/12/25 07:00 FiO2 Intake & Output 01/11/25 01/12/25 01/12/25 18:59 06:59 18:59 Other: Voiding Method Toilet Toilet # Voids 3 3 1 # Bowel Movements 1 - Labs CBC & Chem 7: 01/12/25 05:06 01/12/25 05:06 Labs: Abnormal Lab Results - Last 24 Hours (Table) 01/12/25 01/12/25 Range/Units 05:06 05:06 RBC 3.89 L (4.10-5.20) 10*6/uL Hgb 11.2 L (12.0-15.0) g/dL Hct 34.9 L (37.2-46.3) % RDW 16.3 H (11.5-14.5) % MPV 12.5 H (9.5-12.2) fL Immature Gran # 0.08 H (0.00-0.04) 10*3/uL Chloride 110 H (98-107) mmol/L Total Bilirubin 2.5 H (0.2-1.3) mg/dL AST 84 H (14-36) U/L ALT 107 H (4-34) U/L Alkaline Phosphatase 702 H (38-126) U/L Total Protein 5.0 L (6.3-8.2) g/dL Albumin 2.8 L (3.5-5.0) g/dL
[2025-01-12] MEDS: amLODIPine 5 MG TAB PO SCH (15:23)
--- NOTE | 2025-01-12 23:16 | P.PN ---
Subjective Progress Note Date: 01/12/25 This is a pleasant 64-year-old female, past medical history significant for sleeve gastrectomy-Dr. Dawn, anemia, asthma, hypertension, hypothyroidism, former nicotine dependence, depression, obesity and multiple other medical issues presented to the ER with complaints of right lower chest pain/right upper quadrant abdominal pain radiating through to the back accompanied by nausea, increased indigestion, accompanied by dark yellow urine over the last couple days worsened after eating. 01/07/2025 maintained on IV fluid hydration, Zosyn. Echo reported normal LV function, EF 55% with no significant valvular dysfunction appreciated. T. bili increased to 7.3, AST decreased to 303, ALT decreased to 231, alk phos decreased to 1124. Bicarb 21 BUN 14, creatinine 0.9, urine less dark. Denies chest pain, palpitations or shortness of breath. Denies nausea, vomiting. Denies abdominal pain, reports minimal right upper quadrant "soreness". Afebrile, normal WBC. Hemoglobin 12.4, platelets 193. 01/08/2025 T. bili decreased to 6.6, LFTs continue trending down. Afebrile, normal WBC. Renal function stable. Endorses minimal right upper quadrant to mid epigastric 'soreness'denies abdominal pain. Denies nausea, vomiting. Ambulating, tolerating exertion well. Denies chest pain, palpitations or shortness of breath. Complains of generalized itching. 01/09: Patient seen at bedside. No acute overnight events. Denied shortness of breath, chest pain, nausea and vomiting. Reports decrease in abdominal pain. Awaiting cholecystectomy today. 01/10: Patient seen at bedside. Status post laparoscopic cholecystectomy day 1. Reports persistent nausea. Denies shortness of breath, fevers, chest pain, and vomiting. She was able to mobilize to the bathroom independently. Has voided appropriately. Have not had a bowel movement since last Monday. Reports not being able to pass gas. Patient reports has not eaten since last Monday. 01/11: Patient seen at bedside. Reports being able to pass gas, however still has not had a bowel movement. Denies nausea, vomiting, shortness of breath, fevers and chest pains. 01/12/2025 Patient is resting in the bed. Awake alert and oriented x 3. No complaints of chest pain or shortness of breath. Denied any worsening abdominal pain. Able to pass flatus. Tolerating regular diet. Afebrile. LFTs are improving. Patient is scheduled for ERCP tomorrow. Nothing by mouth after midnight. Pertinent positives and negatives discussed above, a complete review of systems was preformed and all the other sytems were negative. Vitals Reviewed. PHYSICAL EXAM: GENERAL: Pleasant, ambulating in room, alert and oriented x 3, no acute distress HEENT: Normocephalic, atraumatic, pupils equal and reactive, positive scleral icterus CARDIOVASCULAR: S1, S2 regular. No murmur RESPIRATION: Unlabored, equal air entry, clear to auscultation. ABDOMEN: Soft, obese, minimal right upper quadrant tenderness. No guarding. no masses palpable. Positive bowel sounds. LEGS: No edema. no swelling NERVOUS SYSTEM: No focal neurological deficits Skin: Warm and dry Data Reviewed Today: 01/11/2025 Patient Labs: WBC 8.81, hemoglobin 12.1, sodium 140, potassium 3.9, total bilirubin 3.5, AST 121, ALT 145, ALP 980 . Imaging: Abdominal x-ray indicates no evidence for free air or bowel obstruction. Scattered mild to moderate stool. Assesment and Plan: #Chest pain, negative tropes, ACS has been ruled out, cardiology following #Hyperbilirubinemia, transaminitis with elevated alk phosphatase. CT reporting gallstones, suspect choledocholithiasis # Cholecystitis with evidence of choledocholithiasis. Status post a cholecystectomy on 01/09/2025. Patient is scheduled for ERCP tomorrow. #History of gastric sleeve #Chronic anemia secondary to the above #Hypertension #Mood disorder #Hyperlipidemia Plan: - ERCP on Monday - Continue with pain management, bowel regimen and symptomatic management.. - Continue with Zosyn.. -Continue on MiraLAX DVT prophylaxis: Lovenox GI prophylaxis: Protonix Objective - Vital Signs Vital signs: Vital Signs Temp 97.9 F 01/12/25 07:00 Pulse 60 01/12/25 07:00 Resp 16 01/12/25 07:00 BP 190/77 01/12/25 07:00 Pulse Ox 97 01/12/25 07:00 FiO2 Intake & Output 01/11/25 01/12/25 01/12/25 18:59 06:59 18:59 Other: Voiding Method Toilet Toilet # Voids 3 3 1 # Bowel Movements 1 - Labs CBC & Chem 7: 01/12/25 05:06 01/12/25 05:06 Labs: Abnormal Lab Results - Last 24 Hours (Table) 01/12/25 01/12/25 Range/Units 05:06 05:06 RBC 3.89 L (4.10-5.20) 10*6/uL Hgb 11.2 L (12.0-15.0) g/dL Hct 34.9 L (37.2-46.3) % RDW 16.3 H (11.5-14.5) % MPV 12.5 H (9.5-12.2) fL Immature Gran # 0.08 H (0.00-0.04) 10*3/uL Chloride 110 H (98-107) mmol/L Total Bilirubin 2.5 H (0.2-1.3) mg/dL AST 84 H (14-36) U/L ALT 107 H (4-34) U/L Alkaline Phosphatase 702 H (38-126) U/L Total Protein 5.0 L (6.3-8.2) g/dL Albumin 2.8 L (3.5-5.0) g/dL
[2025-01-13 08:06] LABS: Basophils # (A) 0.05 X 10*3/uL (0.00-0.10); Basophils % (A) 0.8 %; Eosinophils # (A) 0.19 X 10*3/uL (0.04-0.35); Eosinophils % (A) 2.9 %; HCT 35.3 % (37.2-46.3); HGB 11.0 g/dL (12.0-15.0); Immature Grans, Automated 0.90 %; Lymphocytes # (A) 1.67 X 10*3/uL (0.90-5.00); Lymphocytes % (A) 25.1 %; MCH 28.4 pg (27.0-32.0); MCHC 31.2 g/dL (32.0-37.0); MCV 91.0 FL (80.0-97.0); Monocytes # (A) 0.68 X 10*3/uL (0.20-1.00); Monocytes % (A) 10.2 %; NRBC Per 100 WBC 0 X 10*3/uL (0.00-0.01); Neutrophils # (A) 4.01 X 10*3/uL (1.80-7.70); Neutrophils % (A) 60.1 %; Platelet Count 202 X 10*3/uL (140-440); RBC 3.88 X 10*6/uL (4.10-5.20); RDW 16.3 % (11.5-14.5); WBC 6.66 X 10*3/uL (4.50-10.00)
[2025-01-13] MEDS: ZINC OXIDE PASTE (Z-GUARD) 1 APPLIC TOPICAL PRN (08:20)
[2025-01-13 08:29] LABS: ALT 93 U/L (8-44); AST 71 U/L (13-35); Albumin 3.2 g/dL (3.8-4.9); Albumin/Globulin Ratio 2.00 Ratio (1.60-3.17); Alkaline Phosphatase 704 U/L (41-126); Anion Gap 10.80 mmol/L (4.00-12.00); BUN/Creat Ratio 14.44 Ratio (12.00-20.00); Blood Urea Nitrogen 13.0 mg/dL (9.0-27.0); Calcium 8.7 mg/dL (8.7-10.3); Carbon Dioxide 23.2 mmol/L (21.6-31.8); Chloride 106 mmol/L (96-109); Globulin 1.6 g/dL (1.6-3.3); Glucose 105 mg/dL (70-110); Potassium 3.7 mmol/L (3.5-5.5); Sodium 140 mmol/L (135-145); Total Protein 4.8 g/dL (6.2-8.2)
[2025-01-13] MEDS ORDERED: HYDROcodone/APAP 5-325MG 1 EACH TAB PO PRN (12:25)
--- NOTE | 2025-01-13 12:47 | P.CONS ---
History of Present Illness - Reason for Consult Consult date: 01/13/25 Choledocholithiasis Requesting physician: Gerson Dawn - Chief Complaint Epigastric pain - History of Present Illness This a pleasant 64-year-old female who presented to the emergency department 8 days ago with complaints of epigastric pain, initially was thought to be cardiac in source. Acute coronary event was ruled out and general surgery was consulted for abdominal pain with concerns for cholelithiasis with cholecystitis. Pain on admission patient was noted to have jaundice and transaminitis. She underwent laparoscopic cholecystectomy with Dr. Dawn on 01/09/2025. Since that time abdominal pain has improved, LFTs including bilirubin have continued to trend down. Gastroenterology consulted for choledocholithiasis. Patient is seen and evaluated today states she does have some surgical discomfort but the epigastric pain that was radiating into her back is completely gone. She has been tolerating low-fat diet she has been afebrile. No nausea or vomiting. Admitting labs WBC 4.6 hemoglobin 11.9 platelet count 191,000 total bilirubin 4.2 AST 191 ALT 177 alkaline phosphatase 1057. Today's labs WBC 6.6 hemoglobin 11.0 platelet count 202,000 total bilirubin 1.9 AST 71 ALT 93 alkaline phosphatase 704. Review of Systems REVIEW OF SYSTEMS: CARDIOPULMONARY: No chest pain or shortness of breath. Gastrointestinal: Reports epigastric pain resolved. Has surgical pain at incisions.. No nausea or vomiting. No hematemesis, coffee-ground emesis. No rectal bleeding, or melena. GENITOURINARY: No dysuria or hematuria. MUSCULOSKELETAL: Reports normal range of motion. SKIN: No rashes. No jaundice. ENDOCRINE: No chills, fevers. No excessive weight gain or loss. No polydipsia or polyuria. PSYCHIATRIC: Unremarkable. NEUROLOGY: No change in mental status. Denies dizziness, headache. ENT: Vision unremarkable. CONSTITUTIONAL: No recent weight loss. No fever, chills, night sweats. Past Medical History Past Medical History: Asthma, Blood Disorder, Hypertension, Thyroid Disorder Additional Past Medical History / Comment(s): anemia History of Any Multi-Drug Resistant Organisms: None Reported Past Surgical History: Bariatric Surgery, Tonsillectomy Additional Past Surgical History / Comment(s): gastric sleeve Past Anesthesia/Blood Transfusion Reactions: No Reported Reaction Past Psychological History: Depression Smoking Status: Former smoker Past Alcohol Use History: None Reported Additional Past Alcohol Use History / Comment(s): states smoked 1 year in college in the 1980s Past Drug Use History: None Reported - Past Family History Mother Additional Family Medical History / Comment(s): uterine cancer Medications and Allergies Home Medications Medication Instructions Recorded Confirmed Type Atorvastatin [Lipitor] 10 mg PO DAILY 01/05/25 01/05/25 History DULoxetine HCL [Cymbalta] 60 mg PO DAILY 01/05/25 01/05/25 History Multivitamin [Multivitamins Adult 1 tab PO DAILY 01/05/25 01/05/25 History Gummies] Olmesartan Medoxomil 40 mg PO DAILY 01/05/25 01/05/25 History Vitamin B-12 Gummy 1 tab PO DAILY 01/05/25 01/05/25 History Vitamin D3 Gummy 1 tab PO DAILY 01/05/25 01/05/25 History Allergies Allergy/AdvReac Type Severity Reaction Status Date / Time codeine Allergy Vomiting Verified 01/09/25 10:26 sulfamethoxazole Allergy Rash/Hives Verified 01/09/25 10:26 [From Bactrim] trimethoprim [From Bactrim] Allergy Rash/Hives Verified 01/09/25 10:26 Physical Exam Vitals: Vital Signs Temp Pulse Pulse Resp BP BP Pulse Ox 01/13/25 01:00 98.0 F 66 18 128/70 99 01/12/25 20:00 84 78 17 01/12/25 19:20 98.2 F 78 17 155/98 98 01/12/25 14:49 98.9 F 92 16 136/51 97 Intake and Output 01/12/25 01/13/25 01/13/25 22:59 06:59 14:59 Intake Total 590 Balance 590 Intake: Oral 590 Other: Voiding Method Toilet # Voids 2 2 General appearance: The patient is alert, oriented, appears in no acute di stress. Obese. HET: Head is normocephalic and atraumatic. Conjunctiva pink. Sclera anicteric. Neck: Supple without lymphadenopathy. Trachea midline. Heart: Regular. Lungs: Equal expansion, normal respiratory effort. Abdomen: Soft, incisions well-approximated with Steri-Strips with surrounding ec chymosis, tenderness at surgical incision sites otherwise no epigastric tenderness, nondistended. Skin: No rashes. No jaundice. Extremities: Normal skin color and turgor. No pedal edema. Neurological: No focal deficits. Alert and oriented x3. Results CBC & Chem 7: 01/13/25 04:22 01/14/25 05:33 Labs: Abnormal Lab Results - Last 24 Hours (Table) 01/13/25 01/13/25 Range/Units 04:22 04:22 RBC 3.88 L (4.10-5.20) X 10*6/uL Hgb 11.0 L (12.0-15.0) g/dL Hct 35.3 L (37.2-46.3) % MCHC 31.2 L (32.0-37.0) g/dL RDW 16.3 H (11.5-14.5) % MPV 12.8 H (9.5-12.2) FL Immature Gran # 0.06 H (0.00-0.04) X 10*3/uL Total Bilirubin 1.9 H (0.3-1.2) mg/dL AST 71 H (13-35) U/L ALT 93 H (8-44) U/L Alkaline Phosphatase 704 H (41-126) U/L Total Protein 4.8 L (6.2-8.2) g/dL Albumin 3.2 L (3.8-4.9) g/dL Comments: Chest CT angiogram reports no evidence for aortic dissection, aneurysm or occlusion. No acute abnormality identified in the chest/abdomen/pelvis. Nonacute findings as above. Did report layering increased densities within the lumen consistent with gallstones present. Assessment and Plan (1) Transaminitis Narrative/Plan: 64-year-old female with had presented to the emergency department 8 days ago with complaints of epigastric pain with acute coronary syndrome ruled out evaluated by general surgery secondary to elevated LFTs and bilirubin with CT evidence of layering gallstones patient was brought back for laparoscopic cholecystectomy. She continued to have elevated LFTs and bilirubin however had been trending down since surgery 4 days ago. Symptoms are now resolved and LFTs and bilirubin continue to trend down. Likely patient had passed a CBD stone. Patient had Lovenox this morning, will order MRCP for evaluation of possible choledocholithiasis. CP positive for intrahepatic and extrahepatic biliary dilation secondary to obstructing stone in the CBD. Will plan for ERCP. Current Visit: Yes Status: Acute Code(s): R74.01 - ELEVATION OF LEVELS OF LIVER TRANSAMINASE LEVELS SNOMED Code(s): 510426191 (2) Jaundice Current Visit: Yes Status: Acute Code(s): R17 - UNSPECIFIED JAUNDICE SNOMED Code(s): 20165019 (3) Cholelithiasis Current Visit: Yes Status: Acute Code(s): K80.20 - CALCULUS OF GALLBLADDER W/O CHOLECYSTITIS W/O OBSTRUCTION SNOMED Code(s): 189919850 (4) Abdominal pain Current Visit: Yes Status: Acute Code(s): R10.9 - UNSPECIFIED ABDOMINAL PAIN SNOMED Code(s): 78100518 (5) Choledocholithiasis Current Visit: Yes Status: Acute Code(s): K80.50 - CALCULUS OF BILE DUCT W/O CHOLANGITIS OR CHOLECYST W/O OBST SNOMED Code(s): 154355892 Plan: 1. Continue symptomatic and supportive care 2. Hold Lovenox and aspirin 3. Patient may have low-fat diet following MRI, n.p.o. after midnight 4. MRCP ordered and reviewed 5. Daily CMP 6. Will plan for ERCP tomorrow Thank you for this consultation, we will continue to follow. Dr. Arminda Breaux I agree with the dictator's note, documented as a scribe by Ana Maria Ramos.
--- NOTE | 2025-01-13 13:42 | MR ---
MR MRCP INDICATION: Patient age:Female; 64 years old; Reason for study: Elevated bilirubin, LFTs; PHH. COMPARISON: Abdominal radiograph 01/10/2025, CTA thoracoabdominal 01/05/2025. TECHNIQUE: Multi planar, T2-weighted imaging with and without fat saturation and chemical shift imag ing was performed of the abdomen. Then, heavily T2 weighted imaging was utilized in order to study th e biliary system. Maximum intensity projection images were reconstructed from the original data of t he biliary tree. No Gadolinium given. FINDINGS: Limited examination due to patient's arch body habitus. MRCP: The intrahepatic ducts and a dilated appearance. The common bile duct at the level of the cao creatic head measures 13 mm in size. The common hepatic duct measures 15 mm in size. The pancreatic duct is normal. There is a filling defect within the common bile duct at the pancreatic head measuri ng up to 1 cm with subsequent common bile duct dilatation (series 401, image 23). The gallbladder is nonvisualized and may be surgically absent now. Abdomen: The adrenal glands, and pancreas have a normal noncontrast appearance. Elevation of the righ t hemidiaphragm. No hydronephrosis. Exophytic left mid kidney T1 hyperintense proteinaceous/hemorrhag ic cyst. 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 Small hiatal h ernia with post gastric sleeve changes. Mildly enlarged spleen measuring 14.5 cm in CC dimension. Dis delio colonic diverticulosis without evidence for acute diverticulitis. Other: Mild cardiomegaly. IMPRESSION: 1. Intra and extra hepatic biliary ductal dilatation secondary to an obstructing 1 cm calculus withi n the common bile duct. Consistent with choledocholithiasis. 2. Nonvisualization of the gallbladder which may be surgical absent. Correlate with surgical history . 3. Mild splenomegaly. [facility], , 01/13/2025 1:40 PM
--- NOTE | 2025-01-13 15:16 | P.PN ---
Subjective Progress Note Date: 01/13/25 01/06/25 This is a pleasant 64-year-old female, past medical history significant for sleeve gastrectomy-Dr. Dawn, anemia, asthma, hypertension, hypothyroidism, former nicotine dependence, depression, obesity and multiple other medical issues presented to the ER with complaints of right lower chest pain/right upper quadrant abdominal pain radiating through to the back accompanied by nausea, increased indigestion, accompanied by dark yellow urine over the last couple days worsened after eating. Troponins negative, EKG reported sinus rhythm. Elevated LFTs; T. bili 3.6, AST 265, ALT 199, alk phos 1313 with repeat levels pending. Lactic acid 1.3/ bicarb 17, BUN 22, creatinine 0.93. Afebrile, normal WBC. CT chest abdomen pelvis reported unremarkable liver ,layering increased densities within the lumen consistent with gallstones, pancreas unremarkable. no hydronephrosis or renal calculi, ureters are unremarkable left renal cystic lesion without definite enhancement. No evidence for aortic dissection, aneurysm or occlusion. 01/07/2025 maintained on IV fluid hydration, Zosyn. Echo reported normal LV function, EF 55% with no significant valvular dysfunction appreciated. T. bili increased to 7.3, AST decreased to 303, ALT decreased to 231, alk phos decreased to 1124. Bicarb 21 BUN 14, creatinine 0.9, urine less dark. Denies chest pain, palpitations or shortness of breath. Denies nausea, vomiting. Denies abdominal pain, reports minimal right upper quadrant "soreness". Afebrile, normal WBC. Hemoglobin 12.4, platelets 193. 01/08/2025 T. bili decreased to 6.6, LFTs continue trending down. Afebrile, normal WBC. Renal function stable. Endorses minimal right upper quadrant to mid epigastric 'soreness'denies abdominal pain. Denies nausea, vomiting. Ambulating, tolerating exertion well. Denies chest pain, palpitations or shortness of breath. Complains of generalized itching. 01/13/2025 status post laparoscopic cholecystectomy on 01/09/2025. Reports right upper quadrant abdominal "spasming". bilirubin/LFTs continue trending down. GI regarding choledocholithiasis. Continues on Zosyn. afebrile, normal WBC. Hemoglobin 11, platelets 202. Renal function stable. T. bili 1.9 AST 71 ALT 93 alk phosphatase 704. Patient was n.p.o., but received Lovenox this morning. Objective - Vital Signs Vital signs: Vital Signs Temp 97.6 F 01/13/25 07:16 Pulse 59 L 01/13/25 07:16 Resp 18 01/13/25 07:16 BP 135/81 01/13/25 09:30 Pulse Ox 98 01/13/25 07:16 FiO2 Intake & Output 01/12/25 01/13/25 01/13/25 18:59 06:59 18:59 Intake Total 590 Balance 590 Intake: Oral 590 Other: Voiding Method Toilet Toilet Toilet # Voids 3 2 # Bowel Movements 1 - Exam PHYSICAL EXAM: VITAL SIGNS: [Reviewed] GENERAL: Sitting up in bed, alert and oriented x 3, no acute distress HEENT: Normocephalic, atraumatic, pupils equal and reactive, sclera anicteric NECK: Supple, no JVD. CARDIOVASCULAR: S1, S2 regular. No murmur RESPIRATION: Unlabored, equal air entry, clear to auscultation. ABDOMEN: Soft, obese, status post laparoscopic surgery, incisions well- approximated with Steri-Strips. Positive bowel sounds. LEGS: No edema. no swelling NERVOUS SYSTEM: Cranial N 2-12 grossly normal.No focal deficits. Strength and sensation grossly intact. Skin: Warm and dry - Labs CBC & Chem 7: 01/13/25 04:22 01/13/25 04:22 Labs: Abnormal Lab Results - Last 24 Hours (Table) 01/13/25 01/13/25 Range/Units 04:22 04:22 RBC 3.88 L (4.10-5.20) X 10*6/uL Hgb 11.0 L (12.0-15.0) g/dL Hct 35.3 L (37.2-46.3) % MCHC 31.2 L (32.0-37.0) g/dL RDW 16.3 H (11.5-14.5) % MPV 12.8 H (9.5-12.2) FL Immature Gran # 0.06 H (0.00-0.04) X 10*3/uL Total Bilirubin 1.9 H (0.3-1.2) mg/dL AST 71 H (13-35) U/L ALT 93 H (8-44) U/L Alkaline Phosphatase 704 H (41-126) U/L Total Protein 4.8 L (6.2-8.2) g/dL Albumin 3.2 L (3.8-4.9) g/dL Assessment and Plan Assessment: Chest pain, negative tropes, ACS has been ruled out, cardiology following Hyperbilirubinemia, transaminitis with elevated alk phosphatase. CT reporting gallstones, suspect choledocholithiasis. Status post laparoscopic cholecystectomy. History of gastric sleeve Chronic anemia secondary to the above Hypertension Hyperlipidemia Morbid obesity, BMI 47 Plan: Continue with current medication regimen ,monitoring and symptomatic treatment. Maintain antibiotics. Hold Lovenox and aspirin. Close monitoring of CMP, evaluated by GI with MRCP pending. The impression and plan of care has been dictated as directed. : I performed a history and examination of this patient, discussed the same with the dictator. I agree with the dictator's note ,documented as a scribe. Any additional findings or plans will be noted.
--- NOTE | 2025-01-13 15:41 | P.PN ---
Subjective Progress Note Date: 01/13/25 SURGICAL PROGRESS NOTE CHIEF COMPLAINT: Chest pain HISTORY OF PRESENT ILLNESS: Patient status post laparoscopic cholecystectomy on 724. Patient had MRCP completed today that reported intra and extrahepatic biliary ductal dilatation secondary to an obstructing 1 cm calculus within the common bile duct. Consistent with choledocholithiasis. Total bilirubin trending down LFTs trending down alk phos staying the same about 704 PHYSICAL EXAM: VITAL SIGNS: Reviewed. GENERAL: Well-developed in no acute distress. HEENT: Scleral icterus present ABDOMEN: Soft. Nondistended. Nontender NEUROLOGIC: Alert and oriented. Cranial nerves II through XII grossly intact. SKIN: Jaundiced ASSESSMENT: 1. Cholecystitis 2. Choledocholithiasis PLAN: -Patient scheduled for ERCP tomorrow with GI service Physician Finance Professional note has been reviewed by physician. Signing provider agrees with the documented findings, assessment, and plan of care. Objective - Vital Signs Vital signs: Vital Signs Temp 97.6 F 01/13/25 07:16 Pulse 59 L 01/13/25 07:16 Resp 18 01/13/25 07:16 BP 135/81 01/13/25 09:30 Pulse Ox 98 01/13/25 07:16 FiO2 Intake & Output 01/12/25 01/13/25 01/13/25 18:59 06:59 18:59 Intake Total 590 Balance 590 Intake: Oral 590 Other: Voiding Method Toilet Toilet Toilet # Voids 3 2 # Bowel Movements 1 - Labs CBC & Chem 7: 01/13/25 04:22 01/13/25 04:22 Labs: Abnormal Lab Results - Last 24 Hours (Table) 01/13/25 01/13/25 Range/Units 04:22 04:22 RBC 3.88 L (4.10-5.20) X 10*6/uL Hgb 11.0 L (12.0-15.0) g/dL Hct 35.3 L (37.2-46.3) % MCHC 31.2 L (32.0-37.0) g/dL RDW 16.3 H (11.5-14.5) % MPV 12.8 H (9.5-12.2) FL Immature Gran # 0.06 H (0.00-0.04) X 10*3/uL Total Bilirubin 1.9 H (0.3-1.2) mg/dL AST 71 H (13-35) U/L ALT 93 H (8-44) U/L Alkaline Phosphatase 704 H (41-126) U/L Total Protein 4.8 L (6.2-8.2) g/dL Albumin 3.2 L (3.8-4.9) g/dL
[2025-01-14 06:47] LABS: ALT 77 U/L (4-34); African American GFR (CKD) 79 (>60 ml/min/1.73 sqM); Albumin 3.1 g/dL (3.5-5.0); Albumin/Globulin Ratio 1.3; Alkaline Phosphatase 639 U/L (38-126); Anion Gap 7 mmol/L; Blood Urea Nitrogen 14 mg/dL (7-17); Calcium 9.1 mg/dL (8.4-10.2); Carbon Dioxide 24 mmol/L (22-30); Chloride 109 mmol/L (98-107); Globulin 2.3 g/dL; Glucose 97 mg/dL (74-99); Non-African American GFR(CKD) 69 (>60 ml/min/1.73 sqM); Sodium 140 mmol/L (137-145); Total Protein 5.4 g/dL (6.3-8.2)
[2025-01-14 06:49] LABS: AST 65 U/L (14-36); Potassium 3.8 mmol/L (3.5-5.1)
[2025-01-14 09:54] LABS: INR 0.9 (<1.2); Prothrombin Time 9.9 sec (10.0-12.5)
[2025-01-14] MEDS ORDERED: INDOMETHACIN 100 MG SUPPOSITORY RECTAL ONE (12:00)
[2025-01-14] MEDS: INDOMETHACIN 100 MG SUPPOSITORY RECTAL ONE (13:05)
--- NOTE | 2025-01-14 14:25 | P.PN ---
Subjective Progress Note Date: 01/14/25 SURGICAL PROGRESS NOTE CHIEF COMPLAINT: Chest pain HISTORY OF PRESENT ILLNESS: Patient status post laparoscopic cholecystectomy on 01/09. Patient does report spasming pain across right upper quadrant. Patient had MRCP completed today that reported intra and extrahepatic biliary ductal dilatation secondary to an obstructing 1 cm calculus within the common bile duct. Consistent with choledocholithiasis. Total bilirubin 2.2 AST 65 ALT 77 alk phos 639 PHYSICAL EXAM: VITAL SIGNS: Reviewed. GENERAL: Well-developed in no acute distress. HEENT: Scleral icterus present ABDOMEN: Soft. Nondistended. Nontender NEUROLOGIC: Alert and oriented. Cranial nerves II through XII grossly intact. SKIN: Jaundiced ASSESSMENT: 1. Cholecystitis 2. Choledocholithiasis PLAN: -Patient scheduled for ERCP today with GI service Physician Manager Federal note has been reviewed by physician. Signing provider agrees with the documented findings, assessment, and plan of care. Objective - Vital Signs Vital signs: Vital Signs Temp 98.2 F 01/14/25 07:17 Pulse 61 01/14/25 07:17 Resp 17 01/14/25 07:17 BP 156/81 01/14/25 07:17 Pulse Ox 97 01/14/25 07:17 FiO2 Intake & Output 01/13/25 01/14/25 01/14/25 18:59 06:59 18:59 Intake Total 300 Balance 300 Intake: Oral 300 Other: Voiding Method Toilet Toilet Toilet # Voids 4 2 # Bowel Movements 1 - Labs CBC & Chem 7: 01/13/25 04:22 01/14/25 05:33 Labs: Abnormal Lab Results - Last 24 Hours (Table) 01/14/25 01/14/25 Range/Units 05:33 09:11 PT 9.9 L (10.0-12.5) sec Chloride 109 H (98-107) mmol/L Total Bilirubin 2.2 H (0.2-1.3) mg/dL AST 65 H (14-36) U/L ALT 77 H (4-34) U/L Alkaline Phosphatase 639 H (38-126) U/L Total Protein 5.4 L (6.3-8.2) g/dL Albumin 3.1 L (3.5-5.0) g/dL
[2025-01-14] MEDS: IV FLUID CONTINUATION 400 ML IV ONE (14:48)
[2025-01-14] MEDS ORDERED: LIDOCAINE 1% INJ 10MG/ML (20 ML MDV) ONE (15:15)
[2025-01-14] MEDS ORDERED: GLYCOPYRROLATE 0.2 MG/ML 2 ML VIAL ONE (15:15)
[2025-01-14] MEDS ORDERED: PROPOFOL 10 MG/ML 20 ML VIAL IV ONE (15:15)
[2025-01-14] MEDS ORDERED: KETAMINE HCL IN 0.9 % NACL 50 MG/5 ML SYRINGE ONE (15:15)
[2025-01-14] MEDS ORDERED: MIDAZOLAM 2 MG/2 ML VIAL ONE (15:15)
[2025-01-14] MEDS: IOPAMIDOL-300 30ML BTL MISCELLANE ONE (15:30)
[2025-01-14] MEDS: SODIUM CHLORIDE 0.9% 500 ML 500 ML IV ONE ×2 (15:41→15:58)
--- NOTE | 2025-01-14 15:50 | P.PCN ---
Date of Procedure: 01/14/25 Procedure(s) Performed: Brief history: Patient is a 64 year-old pleasant lady scheduled for an ERCP as part of evaluation of abdominal pain, jaundice and elevated serum transaminases for the last 5 days duration. She underwent laparoscopic cholecystectomy 3 days ago. Continued to have elevated LFTs and hence had an MRCP done yesterday that showed 1 cm distal common bile duct stone. Procedure performed: ERCP with biliary sphincterotomy and balloon stone extraction Preoperative diagnoses: Choledocholithiasis IV sedation per anesthesia: Procedure: After informed consent was obtained from the patient and after the risks benefits and complications including bleeding perforation and pancreatitis explained in detail the patient was brought into the endoscopy unit. The patient was placed in prone position and IV conscious sedation was administered by anesthesia under continuous monitoring. The Olympus side-viewing duodenoscope was then inserted into the mouth and esophagus intubated without any difficulty. The scope was gradually advanced into the stomach and duodenum. The major papilla was identified without any difficulty. There was a periampullary diverticulum identified. The major papula was identified without much difficulty. Cannulation was noted with a stiff occasion of the common bile duct which appeared dilated measuring 1.2 cm in diameter. There were 2 filling defects noted in the distal common bile duct. At this time the catheter was exchanged over the guidewire and a biliary sphincterotome was passed over the guidewire into the distal common bile duct. Biliary sphincterotomy was performed at 11 o'clock position and was extended to 1 cm. Following this 11.5 mm balloon was passed over the guidewire into the proximal CBD, gently inflated and withdrawn and 2 stones measuring 5 mm and 8 mm were extracted without any difficulty. Patient tolerated the procedure well. The pancreatic duct was intentionally not cannulated. Impression: 1. Dilated common bile duct measuring 1.2 cm in diameter with 2 filling defects in the distal common bile duct status post biliary sphincterotomy and balloon stone extraction as described above and 2 stones were extracted without any difficulty 2. Pancreatic duct intentionally not cannulated Recommendations: The findings of this examination were discussed with the patient as well as a family. She will be on clear liquids today. Monitor labs tomorrow. If she is stable and labs are improving she can be discharged home tomorrow.
--- NOTE | 2025-01-14 16:15 | FL ---
EXAMINATION TYPE: FL ERCP HISTORY: Fluoroscopy time FINDINGS: 19 seconds of fluoroscopy time. The DAP = [phone] Impression: 1. Fluoroscopy support provided to the referring physician. [facility], , 01/14/2025 4:13 PM
--- NOTE | 2025-01-14 16:23 | P.PN ---
Subjective Progress Note Date: 01/14/25 01/06/25 This is a pleasant 64-year-old female, past medical history significant for sleeve gastrectomy-Dr. Dawn, anemia, asthma, hypertension, hypothyroidism, former nicotine dependence, depression, obesity and multiple other medical issues presented to the ER with complaints of right lower chest pain/right upper quadrant abdominal pain radiating through to the back accompanied by nausea, increased indigestion, accompanied by dark yellow urine over the last couple days worsened after eating. Troponins negative, EKG reported sinus rhythm. Elevated LFTs; T. bili 3.6, AST 265, ALT 199, alk phos 1313 with repeat levels pending. Lactic acid 1.3/ bicarb 17, BUN 22, creatinine 0.93. Afebrile, normal WBC. CT chest abdomen pelvis reported unremarkable liver ,layering increased densities within the lumen consistent with gallstones, pancreas unremarkable. no hydronephrosis or renal calculi, ureters are unremarkable left renal cystic lesion without definite enhancement. No evidence for aortic dissection, aneurysm or occlusion. 01/07/2025 maintained on IV fluid hydration, Zosyn. Echo reported normal LV function, EF 55% with no significant valvular dysfunction appreciated. T. bili increased to 7.3, AST decreased to 303, ALT decreased to 231, alk phos decreased to 1124. Bicarb 21 BUN 14, creatinine 0.9, urine less dark. Denies chest pain, palpitations or shortness of breath. Denies nausea, vomiting. Denies abdominal pain, reports minimal right upper quadrant "soreness". Afebrile, normal WBC. Hemoglobin 12.4, platelets 193. 01/08/2025 T. bili decreased to 6.6, LFTs continue trending down. Afebrile, normal WBC. Renal function stable. Endorses minimal right upper quadrant to mid epigastric 'soreness'denies abdominal pain. Denies nausea, vomiting. Ambulating, tolerating exertion well. Denies chest pain, palpitations or shortness of breath. Complains of generalized itching. 01/13/2025 status post laparoscopic cholecystectomy on 01/09/2025. Reports right upper quadrant abdominal "spasming". bilirubin/LFTs continue trending down. GI regarding choledocholithiasis. Continues on Zosyn. afebrile, normal WBC. Hemoglobin 11, platelets 202. Renal function stable. T. bili 1.9 AST 71 ALT 93 alk phosphatase 704. Patient was n.p.o., but received Lovenox this morning. 01/14/2025 MRCP completed reporting intra and extrahepatic biliary ductal dilatation secondary to an obstructing 1 cm calculus within the common bile duct, consistent with choledocholithiasis. n.p.o., scheduled for ERCP today. T. bili 2.2, AST 65, ALT 77, alk phos 639. reports fluctuating spasming of right upper quadrant radiating around to back. Afebrile. Objective - Vital Signs Vital signs: Vital Signs Temp 98.2 F 01/14/25 07:17 Pulse 61 01/14/25 07:17 Resp 17 01/14/25 07:17 BP 156/81 01/14/25 07:17 Pulse Ox 97 01/14/25 07:17 FiO2 Intake & Output 01/13/25 01/14/25 01/14/25 18:59 06:59 18:59 Other: Voiding Method Toilet Toilet # Voids 4 2 # Bowel Movements 1 - Exam PHYSICAL EXAM: VITAL SIGNS: [Reviewed] GENERAL: Pleasant, sitting up at bedside, alert and oriented x 3, no acute distress HEENT: Normocephalic, atraumatic, pupils equal and reactive, sclera anicteric NECK: Supple, no JVD. CARDIOVASCULAR: S1, S2 regular. No murmur RESPIRATION: Unlabored, equal air entry, clear to auscultation. ABDOMEN: Soft, obese, status post laparoscopic surgery, incisions well- approximated with Steri-Strips. Positive bowel sounds. LEGS: No edema. no swelling NERVOUS SYSTEM: Cranial N 2-12 grossly normal.No focal deficits. Strength and sensation grossly intact. Skin: Warm and dry - Labs CBC & Chem 7: 01/13/25 04:22 01/14/25 05:33 Labs: Abnormal Lab Results - Last 24 Hours (Table) 01/14/25 Range/Units 05:33 Chloride 109 H (98-107) mmol/L Total Bilirubin 2.2 H (0.2-1.3) mg/dL AST 65 H (14-36) U/L ALT 77 H (4-34) U/L Alkaline Phosphatase 639 H (38-126) U/L Total Protein 5.4 L (6.3-8.2) g/dL Albumin 3.1 L (3.5-5.0) g/dL Assessment and Plan Assessment: Chest pain, negative tropes, ACS has been ruled out, cardiology following Hyperbilirubinemia, transaminitis with elevated alk phosphatase. CT reporting gallstones. choledocholithiasis. Status post laparoscopic cholecystectomy. MRCP reporting 1 cm distal common bile duct stone, ERCP pending History of gastric sleeve Chronic anemia secondary to the above Hypertension Hyperlipidemia Morbid obesity, BMI 47 Plan: Continue with current medication regimen ,monitoring and symptomatic treatment. Maintain antibiotics. Pain management. NPO, scheduled for ERCP today with GI. The impression and plan of care has been dictated as directed. : I performed a history and examination of this patient, discussed the same with the dictator. I agree with the dictator's note ,documented as a scribe. Any additional findings or plans will be noted.
--- NOTE | 2025-01-15 09:24 | P.PN ---
Subjective Progress Note Date: 01/15/25 Principal diagnosis: Choledocholithiasis This a pleasant 64-year-old female who presented to the emergency department 8 days ago with complaints of epigastric pain, initially was thought to be cardiac in source. Acute coronary event was ruled out and general surgery was consulted for abdominal pain with concerns for cholelithiasis with cholecystitis. Pain on admission patient was noted to have jaundice and transaminitis. She underwent laparoscopic cholecystectomy with Dr. Dawn on 01/09/2025. Since that time abdominal pain has improved, LFTs including bilirubin have continued to trend down. Gastroenterology consulted for choledocholithiasis. Patient is seen and evaluated today states she does have some surgical discomfort but the epigastric pain that was radiating into her back is completely gone. She has been tolerating low-fat diet she has been afebrile. No nausea or vomiting. Admitting labs WBC 4.6 hemoglobin 11.9 platelet count 191,000 total bilirubin 4.2 AST 191 ALT 177 alkaline phosphatase 1057. Today's labs WBC 6.6 hemoglobin 11.0 platelet count 202,000 total bilirubin 1.9 AST 71 ALT 93 alkaline phosphatase 704. 01/15/2025 Patient seen and examined today as a follow-up. States she is feeling much better. No nausea or vomiting. Abdominal pain improved. Yesterday she underwent ERCP with findings of dilated common bile duct measuring 1.2 cm with 2 filling defects in the distal common bile duct status post biliary sphincterectomy and balloon stone extraction with 2 stones extracted without difficulty. Today's labs currently pending. Patient is tolerating clear liquid diet. She is afebrile. Objective - Vital Signs Vital signs: Vital Signs Temp 98.1 F 01/15/25 02:05 Pulse 60 01/15/25 02:05 Resp 18 01/15/25 02:05 BP 139/78 01/15/25 02:05 Pulse Ox 99 01/15/25 02:05 FiO2 Intake & Output 01/14/25 01/14/25 01/15/25 06:59 18:59 06:59 Intake Total 1230 Balance 1230 Weight 154.221 kg Intake: IV 650 Oral 580 Other: Voiding Method Toilet Toilet Toilet # Voids 2 2 2 # Bowel Movements 0 - Exam General appearance: The patient is alert, oriented, appears in no acute distress. HET: Head is normocephalic and atraumatic. Conjunctiva pink. Sclera anicteric. Neck: Supple without lymphadenopathy. Abdomen: Soft, nontender, nondistended. Extremities: Normal skin color and turgor. No pedal edema Skin: No rashes, no jaundice Neurological: No focal deficits. Alert and oriented. - Labs CBC & Chem 7: 01/13/25 04:22 01/14/25 05:33 Labs: Abnormal Lab Results - Last 24 Hours (Table) 01/14/25 01/14/25 Range/Units 05:33 09:11 PT 9.9 L (10.0-12.5) sec Chloride 109 H (98-107) mmol/L Total Bilirubin 2.2 H (0.2-1.3) mg/dL AST 65 H (14-36) U/L ALT 77 H (4-34) U/L Alkaline Phosphatase 639 H (38-126) U/L Total Protein 5.4 L (6.3-8.2) g/dL Albumin 3.1 L (3.5-5.0) g/dL Assessment and Plan (1) Transaminitis Narrative/Plan: 64-year-old female with had presented to the emergency department 8 days ago with complaints of epigastric pain with acute coronary syndrome ruled out evaluated by general surgery secondary to elevated LFTs and bilirubin with CT evidence of layering gallstones patient was brought back for laparoscopic cholecystectomy. She continued to have elevated LFTs and bilirubin however had been trending down since surgery 4 days ago. Symptoms are now resolved and LFTs and bilirubin continue to trend down. Likely patient had passed a CBD stone. Patient had Lovenox this morning, will order MRCP for evaluation of possible choledocholithiasis. CP positive for intrahepatic and extrahepatic biliary dilation secondary to obstructing stone in the CBD. Will plan for ERCP. Current Visit: Yes Status: Acute Code(s): R74.01 - ELEVATION OF LEVELS OF LIVER TRANSAMINASE LEVELS SNOMED Code(s): 054291988 (2) Jaundice Current Visit: Yes Status: Acute Code(s): R17 - UNSPECIFIED JAUNDICE SNOMED Code(s): 32900106 (3) Cholelithiasis Current Visit: Yes Status: Acute Code(s): K80.20 - CALCULUS OF GALLBLADDER W/O CHOLECYSTITIS W/O OBSTRUCTION SNOMED Code(s): 150198253 (4) Abdominal pain Current Visit: Yes Status: Acute Code(s): R10.9 - UNSPECIFIED ABDOMINAL PAIN SNOMED Code(s): 85750519 (5) Choledocholithiasis Narrative/Plan: Patient is status post ERCP as stated in HPI with the 2 filling defects noted and 2 stones extracted. Current Visit: Yes Status: Acute Code(s): K80.50 - CALCULUS OF BILE DUCT W/O CHOLANGITIS OR CHOLECYST W/O OBST SNOMED Code(s): 876784092 Plan: 1. Continue symptomatic and supportive care 2. Patient may have regular diet 3. Repeat CMP, if LFTs are trending down patient may be discharged 4. Recommend outpatient follow-up in 1 Thank you for this consultation, patient cleared for discharge. Dr. Arminda Breaux I agree with the dictator's note, documented as a scribe by Ana Maria Ramos.
[2025-01-15 09:30] VITALS: BP 155/84; PULSE 55; RESP 16; TEMP 97.8
[2025-01-15 09:40] LABS: ALT 74 U/L (4-34); AST 71 U/L (14-36); African American GFR (CKD) >90 (>60 ml/min/1.73 sqM); Albumin 3.2 g/dL (3.5-5.0); Albumin/Globulin Ratio 1.4; Alkaline Phosphatase 717 U/L (38-126); Anion Gap 8 mmol/L; Blood Urea Nitrogen 13 mg/dL (7-17); Calcium 9.0 mg/dL (8.4-10.2); Carbon Dioxide 24 mmol/L (22-30); Chloride 106 mmol/L (98-107); Globulin 2.3 g/dL; Glucose 93 mg/dL (74-99); Non-African American GFR(CKD) 87 (>60 ml/min/1.73 sqM); Potassium 4.1 mmol/L (3.5-5.1); Sodium 138 mmol/L (137-145); Total Protein 5.5 g/dL (6.3-8.2)
--- NOTE | 2025-01-15 11:29 | P.PN ---
Subjective Progress Note Date: 01/15/25 SURGICAL PROGRESS NOTE CHIEF COMPLAINT: Chest pain HISTORY OF PRESENT ILLNESS: Patient status post laparoscopic cholecystectomy on 01/09. Status post ERCP yesterday with 2 stones extracted. Patient reports no abdominal pain. She is tolerating diet. Afebrile. Total bilirubin 2.1 AST 71 ALT 74 alk phos 770 PHYSICAL EXAM: VITAL SIGNS: Reviewed. GENERAL: Well-developed in no acute distress. HEENT: Scleral icterus present ABDOMEN: Soft. Nondistended. Nontender NEUROLOGIC: Alert and oriented. Cranial nerves II through XII grossly intact. SKIN: Jaundiced ASSESSMENT: 1. Cholecystitis 2. 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 Signing provider agrees with the documented findings, assessment, and plan of care. Objective - Vital Signs Vital signs: Vital Signs Temp 97.8 F 01/15/25 07:15 Pulse 55 L 01/15/25 07:15 Resp 16 01/15/25 08:11 BP 155/84 01/15/25 07:15 Pulse Ox 99 01/15/25 07:15 FiO2 Intake & Output 01/14/25 01/15/25 01/15/25 18:59 06:59 18:59 Intake Total 1230 Balance 1230 Weight 154.221 kg Intake: IV 650 Oral 580 Other: Voiding Method Toilet Toilet Toilet # Voids 2 2 # Bowel Movements 0 - Labs CBC & Chem 7: 01/13/25 04:22 01/15/25 08:51 Labs: Abnormal Lab Results - Last 24 Hours (Table) 01/15/25 Range/Units 08:51 Total Bilirubin 2.1 H (0.2-1.3) mg/dL AST 71 H (14-36) U/L ALT 74 H (4-34) U/L Alkaline Phosphatase 717 H (38-126) U/L Total Protein 5.5 L (6.3-8.2) g/dL Albumin 3.2 L (3.5-5.0) g/dL
--- NOTE | 2025-01-16 16:52 | P.DS ---
Providers Date of admission: 01/05/25 18:01 Expected date of discharge: 01/15/25 Attending physician: Jarvis Wagner Consults: 01/05/25 18:00 Consult Physician Urgent Consulting Provider: Ervin Ludwig Consult Reason/Comments: chest pain Do you want consulting provider notified?: Yes 01/06/25 09:01 Consult Physician Routine Consulting Provider: Gerson Dawn Consult Reason/Comments: gallstones, elev. T bili,/LFTs Do you want consulting provider notified?: Yes 01/12/25 13:13 Consult Physician Routine Consulting Provider: Jess Breaux Consult Reason/Comments: Choledocholithiasis Do you want consulting provider notified?: Yes, Notify in am Primary care physician: Jarvis Wagner Hospital Course: Final diagnosis Chest pain, negative tropes, ACS has been ruled out Hyperbilirubinemia, transaminitis with elevated alk phosphatase. CT reported gallstones. choledocholithiasis. Status post laparoscopic cholecystectomy. Status post ERCP-2 filling defects noted with 2 stones extracted. MRCP reporting 1 cm distal common bile duct stone, ERCP pending History of gastric sleeve Chronic anemia secondary to the above Hypertension Hyperlipidemia Morbid obesity, BMI 47 Hospital course: 01/06/25 This is a pleasant 64-year-old female, past medical history significant for sleeve gastrectomy-Dr. Dawn, anemia, asthma, hypertension, hypothyroidism, former nicotine dependence, depression, obesity and multiple other medical issues presented to the ER with complaints of right lower chest pain/right upper quadrant abdominal pain radiating through to the back accompanied by nausea, increased indigestion, accompanied by dark yellow urine over the last couple days worsened after eating. Troponins negative, EKG reported sinus rhythm. Elevated LFTs; T. bili 3.6, AST 265, ALT 199, alk phos 1313 with repeat levels pending. Lactic acid 1.3/ bicarb 17, BUN 22, creatinine 0.93. Afebrile, normal WBC. CT chest abdomen pelvis reported unremarkable liver ,layering increased densities within the lumen consistent with gallstones, pancreas unremarkable. no hydronephrosis or renal calculi, ureters are unremarkable left renal cystic lesion without definite enhancement. No evidence for aortic dissection, aneurysm or occlusion. 01/07/2025 maintained on IV fluid hydration, Zosyn. Echo reported normal LV function, EF 55% with no significant valvular dysfunction appreciated. T. bili increased to 7.3, AST decreased to 303, ALT decreased to 231, alk phos decreased to 1124. Bicarb 21 BUN 14, creatinine 0.9, urine less dark. Denies chest pain, palpitations or shortness of breath. Denies nausea, vomiting. Denies abdominal pain, reports minimal right upper quadrant "soreness". Afebrile, normal WBC. Hemoglobin 12.4, platelets 193. 01/08/2025 T. bili decreased to 6.6, LFTs continue trending down. Afebrile, normal WBC. Renal function stable. Endorses minimal right upper quadrant to mid epigastric 'soreness'denies abdominal pain. Denies nausea, vomiting. A mbulating, tolerating exertion well. Denies chest pain, palpitations or shortness of breath. Complains of generalized itching. 01/13/2025 status post laparoscopic cholecystectomy on 01/09/2025. Reports right upper quadrant abdominal "spasming". bilirubin/LFTs continue trending down. GI regarding choledocholithiasis. Continues on Zosyn. afebrile, normal WBC. Hemoglobin 11, platelets 202. Renal function stable. T. bili 1.9 AST 71 ALT 93 alk phosphatase 704. Patient was n.p.o., but received Lovenox this morning. 01/14/2025 MRCP completed reporting intra and extrahepatic biliary ductal dilatation secondary to an obstructing 1 cm calculus within the common bile duct, consistent with choledocholithiasis. n.p.o., scheduled for ERCP today. T. bili 2.2, AST 65, ALT 77, alk phos 639. reports fluctuating spasming of right upper quadrant radiating around to back. Afebrile. Significant clinical improvement. Afebrile, denies abdominal pain. denies chest pain, palpitations or shortness of breath. Cleared by both GI and general surgery pending CMP. patient will be discharged home today in a stable condition with guarded prognosis. The impression and plan of care has been dictated as directed. : I performed a history and examination of this patient, discussed the same with the dictator. I agree with the dictator's note ,documented as a scribe. Any additional findings or plans will be noted. Patient Condition at Discharge: Stable Plan - Discharge Summary Discharge Rx Participant: No New Discharge Prescriptions: New diphenhydrAMINE [Benadryl] 25 mg PO QID PRN cap PRN Reason: Itching Hydrocortisone Cream [Hydrocortisone 1% Cream] 1 applic TOPICAL TID PRN each PRN Reason: Skin Irritation amLODIPine [Norvasc] 5 mg PO DAILY #30 tab Continue Olmesartan Medoxomil 40 mg PO DAILY DULoxetine HCL [Cymbalta] 60 mg PO DAILY Vitamin D3 Gummy 1 tab PO DAILY Vitamin B-12 Gummy 1 tab PO DAILY Multivitamin [Multivitamins Adult Gummies] 1 tab PO DAILY Discontinued Atorvastatin [Lipitor] 10 mg PO DAILY Discharge Medication List DULoxetine HCL [Cymbalta] 60 mg PO DAILY 01/05/25 [History] Multivitamin [Multivitamins Adult Gummies] 1 tab PO DAILY 01/05/25 [History] Olmesartan Medoxomil 40 mg PO DAILY 01/05/25 [History] Vitamin B-12 Gummy 1 tab PO DAILY 01/05/25 [History] Vitamin D3 Gummy 1 tab PO DAILY 01/05/25 [History] Hydrocortisone Cream [Hydrocortisone 1% Cream] 1 applic TOPICAL TID PRN each 01/15/25 [Rx] amLODIPine [Norvasc] 5 mg PO DAILY #30 tab 01/15/25 [Rx] diphenhydrAMINE [Benadryl] 25 mg PO QID PRN cap 01/15/25 [Rx] Follow up Appointment(s)/Referral(s): Jarvis Wagner DO [Primary Care Provider] - 1-2 days Jess Breaux MD [STAFF PHYSICIAN] - 1 Week Jordan Breaux MD [STAFF PHYSICIAN] - 02/05/25 2:20 pm Gerson Dawn MD [STAFF PHYSICIAN] - (FOLLOW UP AT 2:20PM) Patient Instructions/Handouts: Low Fat Diet (ED), Low Fat Diet (DC), Low Fat Diet (GEN), ERCP (Endoscopic Retrograde Cholangiopancreatography) (DC), ERCP (Endoscopic Retrograde Cholangiopancreatography) (GEN) Activity/Diet/Wound Care/Special Instructions: FOLLOW UP DIRECTED, SOONER FOR WORSENING SYMPTOMS, PROBLEMS OR CONCERNS. Statin to be resumed outpatient as recommended per PCP. Discharge Disposition: HOME SELF-CARE
== END 2025-01-15 12:58 | disposition home or self-care (01) | DRG 418 ==
LOC: EC 15:47 → 6NMEDSUR 18:00 → OBSVTOIN 18:01 → 6NMEDSUR 23:00
PROVIDERS: ADMIT Family Medicine; ATTEND Family Medicine
PROC: 0FT44ZZ Resection of Gallbladder, Percutaneous Endoscopic Approach (ICD-10-PCS; principal; 2025-01-09 11:00)
PROC: 0FC98ZZ Extirpation of Matter from Common Bile Duct, Via Natural or Artificial Opening Endoscopic (ICD-10-PCS; 2025-01-14 08:15)
PROC: BF101ZZ Fluoroscopy of Bile Ducts using Low Osmolar Contrast (ICD-10-PCS; 2025-01-14 08:15)
DX: K80.63 Calculus of gallbladder and bile duct with acute cholecystitis with obstruction (principal); K91.2 Postsurgical malabsorption, not elsewhere classified; K76.89 Other specified diseases of liver; Z68.42 Body mass index [BMI] 45.0-49.9, adult; D64.9 Anemia, unspecified; E03.9 Hypothyroidism, unspecified; F32.A Depression, unspecified; I10 Essential (primary) hypertension; J45.909 Unspecified asthma, uncomplicated; E66.01 Morbid (severe) obesity due to excess calories; R00.1 Bradycardia, unspecified; K21.9 Gastro-esophageal reflux disease without esophagitis; E80.6 Other disorders of bilirubin metabolism; R74.01 Elevation of levels of liver transaminase levels; R74.8 Abnormal levels of other serum enzymes; R07.89 Other chest pain; E78.5 Hyperlipidemia, unspecified; L29.9 Pruritus, unspecified; Z98.84 Bariatric surgery status; Z79.899 Other long term (current) drug therapy; Z87.891 Personal history of nicotine dependence; Z88.2 Allergy status to sulfonamides; Z88.5 Allergy status to narcotic agent
CPT/HCPCS: 36415; 43262; 43264; 71275; 74019; 74175; 74181; 74330; 80053; 80061; 83036; 83605; 83690; 83735; 83880; 84443; 84484; 85025; 85027; 85610; 85730; 88304; 93005; 93306; 96374; 96375; 96376; 99285